=== PATIENT | male | born 1945 | race Caucasian/White ===

== ENCOUNTER 2022-07-24 12:41 | Inpatient (IN) | payer MEDICARE ==
[~2022-07-24] VITALS: Ht 182.9 cm; Wt 110.3 kg
[2022-07-24] MEDS ORDERED: methylPREDNISolone 125 MG (Solu-MEDROL) VIAL IVP ONE (13:00)
[2022-07-24] MEDS ORDERED: RT-ALBUTEROL/IPRATROPIUM 3 ML (DUONEB) VIAL INH ONE (13:00)
[2022-07-24] MEDS ORDERED: RT-ALBUTEROL/IPRATROPIUM 3 ML (DUONEB) VIAL ONE (13:03)
[2022-07-24 13:04] VITALS: BP 142/95
[2022-07-24 13:25] LABS: ABG BASE EXCESS 1.5 MMOL/L (-2.5-2.5); ABG OXYGEN SATURATION 100 % (94-100); ABG PCO2 43 MMHG (35-45); ABG PO2 153 MMHG (79-93); ABG TCO2 27.2 MMOL/L (21.0-31.0)
[2022-07-24 13:30] LABS: ALLENS TEST YES-POS; INSPIRED O2 60%; PATIENT TEMP 37; VENTILATOR YES
[2022-07-24 13:38] LABS: BASOPHILS # (AUTO) 0.1 10^3/uL (0.0-0.1); BASOPHILS % (AUTO) 1 % (0-10); EOSINOPHILS # (AUTO) 0.6 10^3/uL (0.0-0.3); EOSINOPHILS % (AUTO) 5 % (0-10); HEMATOCRIT 51 % (40-54); LYMPHOCYTES % (AUTO) 10 % (12-44); MEAN CORPUSCULAR HEMOGLOBIN 31 pg (25-34); MEAN CORPUSCULAR HGB CONC 34 g/dL (32-36); MEAN CORPUSCULAR VOLUME 92 fL (80-99); MEAN PLATELET VOLUME 10.8 fL (9.0-12.2); MONOCYTES % (AUTO) 9 % (0-12); NEUTROPHILS % (AUTO) 75 % (42-75); PLATELET COUNT 193 10^3/uL (130-400); WHITE BLOOD COUNT 10.7 10^3/uL (4.3-11.0)
[2022-07-24 13:48] LABS: ALBUMIN 3.3 GM/DL (3.2-4.5); POTASSIUM 4.7 MMOL/L (3.6-5.0)
[2022-07-24 13:49] LABS: CALCIUM 9.3 MG/DL (8.5-10.1)
[2022-07-24 13:50] LABS: TOTAL PROTEIN 7.8 GM/DL (6.4-8.2)
[2022-07-24 13:52] LABS: BILIRUBIN,TOTAL 0.7 MG/DL (0.1-1.0)
[2022-07-24 13:54] LABS: CREATININE SERUM 0.78 MG/DL (0.60-1.30)
[2022-07-24 13:56] LABS: MAGNESIUM 1.9 MG/DL (1.6-2.4)
--- NOTE | 2022-07-24 14:05 | Diagnostic Imaging Report ---
HISTORY: Shortness of air COMPARISON: None TECHNIQUE: Frontal view of the chest. FINDINGS: There is elevation of the right hemidiaphragm with airspace opacity in the right lung base. There may be a small right pleural effusion. No pneumothorax is present. The cardiac silhouette is normal in size. There is aortic atherosclerosis. IMPRESSION: 1. Right basilar airspace opacity, may represent atelectasis or infiltrate. 2. Elevation the right hemidiaphragm versus small pleural effusion. Dictated by: Dictated on workstation # [id number]
[2022-07-24] MEDS ORDERED: HOLD METFORMIN - RECEIVED CONTRAST 20 ML VIAL IV SCH (15:00)
[2022-07-24] MEDS ORDERED: IOHEXOL 350 MG/ML 100 ML (OMNIPAQUE 350) VIAL IV ONE (15:00)
[2022-07-24] MEDS ORDERED: NS 100 ML (IVPB) BAG IV ONE (15:00)
--- NOTE | 2022-07-24 15:53 | Diagnostic Imaging Report ---
EXAMINATION: CT angiography of the chest. TECHNIQUE: Contrast enhanced thin section helical images were obtained through the chest with intravenous contrast timed for the optimal opacification of the arterial structures per CTA protocol. Post-processing, reconstructions and interpretation of angiographic images of the vessels was performed. 3D MIP reconstructions were performed and reviewed. All CT scans use one or more of the following dose optimizing techniques: automated exposure control, MA and/or KvP adjustment based on patient size and exam type or iterative reconstruction. HISTORY: Shortness of breath. COMPARISON: None available. FINDINGS: Vascular: No filling defect within the pulmonary arteries. Thoracic aorta is normal in caliber. Calcification of the aorta and coronary vessels. Thyroid: The thyroid is normal. Mediastinum: Heart size is normal without significant pericardial effusion. No suspicious lymphadenopathy. Lungs and airways: There is a large right pleural effusion with adjacent atelectasis. No pneumothorax. Mild atelectasis within the right lung base. The airways are normal. Upper abdomen: The subphrenic structures are normal. Musculoskeletal: Degenerative changes of the spine without suspicious osseous lesion or compression fracture. IMPRESSION: 1. Large right pleural effusion with adjacent atelectasis. 2. No finding of pulmonary embolus. Dictated by: Dictated on workstation # [id number]
--- NOTE | 2022-07-24 16:40 | ED General ---
General Chief Complaint: Respiratory Problems Stated Complaint: SOA Nursing Triage Note: PT TO RM 7 PT CO OF SOA, PT IN RESP DISTRESS O2 SAT RM AIR 64%, RR 33. PT PLACE ON O2 @ 10 PER OXY MASK. PT STATES HAS BEEN SICK SINCE TUESDAY. PT IS FROM [facility]. HAS HX COPD Source of Information: Patient Exam Limitations: No Limitations History of Present Illness Date Seen by Provider: Jul 24, 2022 Time Seen by Provider: 12:50 Initial Comments Mr. Greco is a 77-year-old gentleman who presents to the emergency room in respiratory distress. On initial assessment he is moving air poorly, employing accessory muscle use, and has an oxygen saturation of 64%. He was immediately placed on a high flow mask. He is visiting the area for the holiday and normally lives in the [facility]. He uses the [employer]. He describes history of COPD, obstructive sleep apnea, hypertension, and hypothyroidism. He does not require oxygen use at home. He has used DuoNeb in both the inhaled and nebulized form today. He has not felt well for about the past 4 days. He denies cough or fever. He denies chest pain. Allergies and Home Medications Allergies Coded Allergies: No Known Drug Allergies (Unverified , 07/24/22) Patient Home Medication List Home Medication List Reviewed: Yes Review of Systems Review of Systems Constitutional: no symptoms reported EENTM: no symptoms reported Respiratory: see HPI Cardiovascular: no symptoms reported Gastrointestinal: no symptoms reported Genitourinary: no symptoms reported Musculoskeletal: no symptoms reported Skin: no symptoms reported Psychiatric/Neurological: No Symptoms Reported Hematologic/Lymphatic: No Symptoms Reported Immunological/Allergic: no symptoms reported Past Nvxxqpc-[id number]-Jswvkp Hx Patient Social History Tobacco Use?: No Smoking Status: Former Smoker Use of E-Cig and/or Vaping dev: No Substance use?: No Alcohol Use?: No Past Medical History Surgeries: Yes Gallbladder Respiratory: Yes Sleep Apnea, COPD Currently Using CPAP: Yes Cardiac: Yes Hypertension Neurological: No Genitourinary: No Gastrointestinal: No Musculoskeletal: No Endocrine: Yes Hypothyroidsim HEENT: No Psychosocial: No Physical Exam Vital Signs Vital Signs - First Documented 07/24/22 12:50 Temp 36.2 Pulse 86 Resp 33 B/P (MAP) 169/101 (123) Pulse Ox 91 O2 Delivery Nasal Cannula O2 Flow Rate 5.00 Capillary Refill : Less Than 3 Seconds Height, Weight, BMI Height: '" Weight: lbs. oz. kg; 35.00 BMI Method: General Appearance: WD/WN, Moderate Distress HEENT: PERRL/EOMI, Normal ENT Inspection Neck: Normal Inspection; No JVD Respiratory: Accessory Muscle Use, Decreased Breath Sounds, Respiratory Distress, Wheezing Cardiovascular: Regular Rate, Rhythm, No Edema, No Murmur Gastrointestinal: Non Tender, Soft Extremity: Normal Inspection, Non Tender, No Pedal Edema Neurologic/Psychiatric: Alert, Oriented x3, No Motor/Sensory Deficits, Normal Mood/Affect, Other (Cognition initially rather dulled but improved rapidly with oxygenation) Skin: Warm/Dry, Pallor Progress/Results/Core Measures Suspected Sepsis SIRS Temperature: Pulse: 74 Respiratory Rate: 30 Laboratory Tests 07/24/22 13:30: White Blood Count 10.7 Blood Pressure 142 /95 Mean: 123 Laboratory Tests 07/24/22 13:30: Creatinine 0.78, Platelet Count 193, Total Bilirubin 0.7 Results/Orders Lab Results Laboratory Tests Test 07/24/22 12:51 07/24/22 13:20 07/24/22 13:30 07/24/22 16:41 Range/Units Influenza Type A (RT-PCR) Not Detected Not Detecte Influenza Type B (RT-PCR) Not Detected Not Detecte SARS-CoV-2 RNA (RT-PCR) Not Detected Not Detecte Blood Gas Puncture Site RT RAD Blood Gas Patient Temperature 37 Arterial Blood pH 7.40 7.37-7.43 Arterial Blood Partial Pressure CO2 43 35-45 MMHG Arterial Blood Partial Pressure O2 153 H 79-93 MMHG Arterial Blood HCO3 26 23-27 MMOL/L Arterial Blood Total CO2 27.2 21.0-31.0 MMOL/L Arterial Blood Oxygen Saturation 100 94-100 % Arterial Blood Base Excess 1.5 -2.5-2.5 MMOL/L Brian Test YES-POS Blood Gas Ventilator Setting YES Blood Gas Inspired Oxygen 60% White Blood Count 10.7 4.3-11.0 10^3/uL Red Blood Count 5.53 H 4.30-5.52 10^6/uL Hemoglobin 17.0 13.3-17.7 g/dL Hematocrit 51 40-54 % Mean Corpuscular Volume 92 80-99 fL Mean Corpuscular Hemoglobin 31 25-34 pg Mean Corpuscular Hemoglobin Concent 34 32-36 g/dL Red Cell Distribution Width 13.2 10.0-14.5 % Platelet Count 193 130-400 10^3/uL Mean Platelet Volume 10.8 9.0-12.2 fL Immature Granulocyte % (Auto) 1 % Neutrophils (%) (Auto) 75 42-75 % Lymphocytes (%) (Auto) 10 L 12-44 % Monocytes (%) (Auto) 9 0-12 % Eosinophils (%) (Auto) 5 0-10 % Basophils (%) (Auto) 1 0-10 % Neutrophils # (Auto) 8.0 H 1.8-7.8 10^3/uL Lymphocytes # (Auto) 1.0 1.0-4.0 10^3/uL Monocytes # (Auto) 1.0 0.0-1.0 10^3/uL Eosinophils # (Auto) 0.6 H 0.0-0.3 10^3/uL Basophils # (Auto) 0.1 0.0-0.1 10^3/uL Immature Granulocyte # (Auto) 0.1 0.0-0.1 10^3/uL D-Dimer 3.19 H 0.00-0.49 UG/ML Sodium Level 131 L 135-145 MMOL/L Potassium Level 4.7 3.6-5.0 MMOL/L Chloride Level 99 98-107 MMOL/L Carbon Dioxide Level 19 L 21-32 MMOL/L Anion Gap 13 5-14 MMOL/L Blood Urea Nitrogen 13 7-18 MG/DL Creatinine 0.78 0.60-1.30 MG/DL Estimat Glomerular Filtration Rate 93 BUN/Creatinine Ratio 17 Glucose Level 84 70-105 MG/DL Calcium Level 9.3 8.5-10.1 MG/DL Corrected Calcium 9.9 8.5-10.1 MG/DL Magnesium Level 1.9 1.6-2.4 MG/DL Total Bilirubin 0.7 0.1-1.0 MG/DL Aspartate Amino Transf (AST/SGOT) 41 H 5-34 U/L Alanine Aminotransferase (ALT/SGPT) 27 0-55 U/L Alkaline Phosphatase 82 40-136 U/L Troponin I 0.072 H 0.080 H <0.028 NG/ML C-Reactive Protein High Sensitivity 5.90 H 0.00-0.50 MG/DL B-Type Natriuretic Peptide 87.7 <100.0 PG/ML Total Protein 7.8 6.4-8.2 GM/DL Albumin 3.3 3.2-4.5 GM/DL Procalcitonin 0.04 <0.10 NG/ML My Orders Orders - BABS GILMORE MD Covid 19 Inhouse Test (07/24/22 12:46) Influenza A And B By Pcr (07/24/22 12:46) Bnp Mcintosh (07/24/22 13:00) Cbc With Automated Diff (07/24/22 13:00) Comprehensive Metabolic Panel (07/24/22 13:00) Hs C Reactive Protein (07/24/22 13:00) Magnesium (07/24/22 13:00) Procalcitonin (Pct) (07/24/22 13:00) Ed Iv/Invasive Line Start (07/24/22 13:00) Ekg Tracing (07/24/22 13:00) O2 (07/24/22 13:00) Monitor-Rhythm Ecg Trace Only (07/24/22 13:00) Fibrin Degradation Products (07/24/22 13:00) Troponin I Mcintosh (07/24/22 13:00) Methylprednisolone Sod Succ (Solu-Medrol (07/24/22 13:00) Albuterol/Ipra Inhalation Soln (Duoneb I (07/24/22 13:00) Svn Small Volume Nebulizer (07/24/22 13:00) Albuterol/Ipra Inhalation Soln (Duoneb I (07/24/22 13:03) Arterial Blood Gas (07/24/22 13:15) Chest 1 View, Ap/Pa Only (07/24/22 13:42) Ct Angio Chest W (07/24/22 14:54) Iohexol Injection (Omnipaque 350 Mg/Ml 1 (07/24/22 15:00) Received Contrast (Hold Metformin- Contr (07/24/22 15:00) Ns (Ivpb) (Sodium Chloride 0.9% Ivpb Bag (07/24/22 15:00) Troponin I Mcintosh (07/24/22 15:30) Aspirin Chewable Tablet (Baby Aspirin Ch (07/24/22 17:00) Furosemide Injection (Lasix Injection) (07/24/22 17:00) Potassium Chloride (Tablet) (Klor Con Ta (07/24/22 17:00) Medications Given in ED Current Medications Medications Dose Ordered Sig/Annetta Route Start Time Stop Time Status Last Admin Dose Admin Albuterol/ Ipratropium 3 ml ONCE ONCE INH 07/24/22 13:00 07/24/22 13:06 DC 07/24/22 13:12 3 ML Iohexol 100 ml ONCE ONCE IV 07/24/22 15:00 07/24/22 15:01 DC 07/24/22 15:35 84 ML Methylprednisolone Sodium Succinate 125 mg ONCE ONCE IVP 07/24/22 13:00 07/24/22 13:06 DC 07/24/22 13:38 125 MG Sodium Chloride 100 ml ONCE ONCE IV 07/24/22 15:00 07/24/22 15:01 DC 07/24/22 15:35 100 ML Vital Signs/I&O 07/24/22 07/24/22 07/24/22 07/24/22 12:50 12:50 12:50 13:04 Temp 36.2 Pulse 86 74 Resp 33 30 B/P (MAP) 169/101 (123) Pulse Ox 91 95 99 O2 Delivery Nasal Cannula Nasal Cannula OxyMask O2 Flow Rate 5.00 3.00 60.00 Capillary Refill : Less Than 3 Seconds Blood Pressure Mean: 123 Progress Note : Progress Note Patient was immediately placed on high flow oxygen and shortly thereafter on BiPAP. His oxygenation resuscitated quickly. He was found to have a large right pleural effusion which is not previously known to him. No specific cause was identified for this unilateral pleural effusion. He likely has some degree of COPD exacerbation, but the pleural effusion is likely the primary cause of h is respiratory failure. He was treated with DuoNeb and Solu-Medrol. He remained on the BiPAP in stable condition throughout the rest of his ER stay. D-dimer was elevated which prompted CT angiogram. No pulmonary embolus was identified. Dr. Garcia was consulted to perform thoracentesis. Fluid should be tested as he has not had thoracentesis in the past and there is no known cause for his pleural effusion. No infectious etiology was identified. Patient desires to have full CODE STATUS. A low-dose of Lasix was administered with accompanying potassium to prevent further accumulation of pleural effusion. Dr. Garcia plans to perform thoracentesis in the morning unless patient decompensates necessitating emergent thoracentesis. Patient had a slight eleva tion in troponin but repeat was stable. ECG Initial ECG Impression Date: Jul 24, 2022 Initial ECG Impression Time: 13:15 Initial ECG Rate: 74 Initial ECG Rhythm: Normal Sinus Comment Sinus rhythm with no ST elevation or depression. No abnormal intervals or axis deviation. PVC noted. Diagnostic Imaging Diagonstic Imaging: Xray Plain Films/CT/US/NM/MRI: chest Comments NAME: HUMPHREY GRECO [facility] REC#: [id number] PT STATUS: REG ER : 1945 PHYSICIAN: BABS GILMORE MD ADMIT DATE: 07/24/22/ER Signed Date of Exam:07/24/22 CHEST 1 VIEW, AP/PA ONLY HISTORY: Shortness of air COMPARISON: None TECHNIQUE: Frontal view of the chest. FINDINGS: There is elevation of the right hemidiaphragm with airspace opacity in the right lung base. There may be a small right pleural effusion. No pneumothorax is present. The cardiac silhouette is normal in size. There is aortic atherosclerosis. IMPRESSION: 1. Right basilar airspace opacity, may represent atelectasis or infiltrate. 2. Elevation the right hemidiaphragm versus small pleural effusion. Dictated by: Dictated on workstation # [id number] Dict: 07/24/22 1402 Trans: 07/24/[address] [facility] [id number] Interpreted by: SHANNAN CAMEJO MD Electronically signed by: SHANNAN CAMEJO MD 07/24/22 1409 Diagonstic Imaging: CT Plain Films/CT/US/NM/MRI: chest Comments CT angiogram of the chest viewed by me and report reviewed. See report below: NAME: HUMPHREY GRECO [employer] REC#: [id number] PT STATUS: REG ER : 1945 PHYSICIAN: BABS GILMORE MD ADMIT DATE: 07/24/22/ER Signed Date of Exam:07/24/22 CT ANGIO CHEST W EXAMINATION: CT angiography of the chest. TECHNIQUE: Contrast enhanced thin section helical images were obtained through the chest with intravenous contrast timed for the optimal opacification of the arterial structures per CTA protocol. Post-processing, reconstructions and interpretation of angiographic images of the vessels was performed. 3D MIP reconstructions were performed and reviewed. All CT scans use one or more of the following dose optimizing techniques: automated exposure control, MA and/or KvP adjustment based on patient size and exam type or iterative reconstruction. HISTORY: Shortness of breath. COMPARISON: None available. FINDINGS: Vascular: No filling defect within the pulmonary arteries. Thoracic aorta is normal in caliber. Calcification of the aorta and coronary vessels. Thyroid: The thyroid is normal. Mediastinum: Heart size is normal without significant pericardial effusion. No suspicious lymphadenopathy. Lungs and airways: There is a large right pleural effusion with adjacent atelectasis. No pneumothorax. Mild atelectasis within the right lung base. The airways are normal. Upper abdomen: The subphrenic structures are normal. Musculoskeletal: Degenerative changes of the spine without suspicious osseous lesion or compression fracture. IMPRESSION: 1. Large right pleural effusion with adjacent atelectasis. 2. No finding of pulmonary embolus. Dictated by: Dictated on workstation # [id number] Dict: 07/24/22 1547 Trans: 07/24/[address] [facility] [id number] Interpreted by: HUMPHREY ADLER DO Electronically signed by: HUMPHREY ADLER DO 07/24/22 1556 Departure Communication (Admissions) Time/Spoke to Admitting Phy: 16:42 Dr. Thelma Hayward at 1650 Dr. Garcia at 1630 Impression Primary Impression: Acute respiratory failure with hypoxia Additional Impressions: Pleural effusion, right COPD exacerbation Disposition: ADMITTED INPATIENT Condition: Stable Admissions Decision to Admit Reason: Admit from ER (General) Decision to Admit/Date: Jul 24, 2022 Time/Decision to Admit Time: 16:42 Departure-Patient Inst. Referrals: NO,LOCAL PHYSICIAN (PCP/Family) Primary Care Physician BABS GILMORE MD Jul 24, 2022 16:40
[2022-07-24] MEDS ORDERED: FUROSEMIDE 40 MG/4 ML INJ (LASIX) IVP ONE (17:00)
[2022-07-24] MEDS ORDERED: KCL 10 MEQ TAB (MICRO K) PO ONE (17:00)
[2022-07-24] MEDS ORDERED: ASPIRIN 81 MG CHEW (CHILDREN'S ASA) PO ONE (17:00)
--- NOTE | 2022-07-24 17:28 | Tele-ICU Consult ---
Progress Note 77 y/o male with hx of COPD presents with SOB and hypoxemia ( O2 sat 64%) Started on steroids, and nebs CXR: here is elevation of the right hemidiaphragm with airspace opacity in the right lung base. There may be a small right pleural effusion. No pneumothorax is present. The cardiac silhouette is normal in size. There is aortic atherosclerosis. IMPRESSION: 1. Right basilar airspace opacity, may represent atelectasis or infiltrate. 2. Elevation the right hemidiaphragm versus small pleural effusion. CTA chest: no PE IMP: acute exaccerbation of COPD Focused Exam Height, Weight, BMI Height: '" Weight: lbs. oz. kg; 35.00 BMI Method: Labs Laboratory Tests 07/24/22 13:30 Results Results/Procedures Lab Laboratory Tests 07/24/22 13:30 Results Labs Labs Laboratory Tests 07/24/22 12:51: Influenza Type A (RT-PCR) Not Detected, Influenza Type B (RT-PCR) Not Detected, SARS-CoV-2 RNA (RT-PCR) Not Detected 07/24/22 13:20: Blood Gas Puncture Site RT RAD, Blood Gas Patient Temperature 37, Arterial Blood pH 7.40, Arterial Blood Partial Pressure CO2 43, Arterial Blood Partial Pressure O2 153H, Arterial Blood HCO3 26, Arterial Blood Total CO2 27.2, Arterial Blood Oxygen Saturation 100, Arterial Blood Base Excess 1.5, Brian Test YES-POS, Blood Gas Ventilator Setting YES, Blood Gas Inspired Oxygen 60% 07/24/22 13:30: White Blood Count 10.7, Red Blood Count 5.53H, Hemoglobin 17.0, Hematocrit 51, M justin Corpuscular Volume 92, Mean Corpuscular Hemoglobin 31, Mean Corpuscular Hemoglobin Concent 34, Red Cell Distribution Width 13.2, Platelet Count 193, Mean Platelet Volume 10.8, Immature Granulocyte % (Auto) 1, Neutrophils (%) (Auto) 75, Lymphocytes (%) (Auto) 10L, Monocytes (%) (Auto) 9, Eosinophils (%) (Auto) 5, Basophils (%) (Auto) 1, Neutrophils # (Auto) 8.0H, Lymphocytes # (Auto) 1.0, Monocytes # (Auto) 1.0, Eosinophils # (Auto) 0.6H, Basophils # (Auto) 0.1, Immature Granulocyte # (Auto) 0.1, D-Dimer 3.19H, Sodium Level 131L, Potassium Level 4.7, Chloride Level 99, Carbon Dioxide Level 19L, Anion Gap 13, Blood Urea Nitrogen 13, Creatinine 0.78, Estimat Glomerular Filtration Rate 93, BUN/Creatinine Ratio 17, Glucose Level 84, Calcium Level 9.3, Corrected Calcium 9.9, Magnesium Level 1.9, Total Bilirubin 0.7, Aspartate Amino Transf (AST/SGOT) 41H, Alanine Aminotransferase (ALT/SGPT) 27, Alkaline Phosphatase 82, Troponin I 0.072H, C-Reactive Protein High Sensitivity 5.90H, B-Type Natriuretic Peptide 87.7, Total Protein 7.8, Albumin 3.3, Procalcitonin 0.04 07/24/22 16:41: Troponin I 0.080H JEOVANY GOMES MD Jul 24, 2022 17:28
[2022-07-24] MEDS ORDERED: polyethylene glycoL POWDER 17 GM (MIRALAX) PACK PO PRN (18:15)
[2022-07-24] MEDS ORDERED: ACETAMINOPHEN 325 MG TABLET PO PRN (18:15)
[2022-07-24] MEDS ORDERED: MILK OF MAGNESIA 400 MG/5 ML 30 ML UDC PO PRN (18:15)
[2022-07-24] MEDS ORDERED: MELATONIN 3 MG TABLET PO PRN (18:15)
[2022-07-24] MEDS ORDERED: ONDANSETRON 4 MG (ZOFRAN) ORAL DISSOLVE TAB PO PRN (18:15)
[2022-07-24] MEDS ORDERED: CALCIUM CARBONATE 500 MG (TUMS) TAB.CHEW PO PRN (18:15)
[2022-07-24] MEDS ORDERED: LACTULOSE SYRUP 10GM/15ML (ENULOSE) 30ML UDC PO PRN (18:15)
[2022-07-24] MEDS ORDERED: BISACODYL 10 MG SUPP (DULCOLAX) PR PRN (18:15)
[2022-07-24] MEDS ORDERED: NS IV 500 ML 500 ML IV PRN (18:15)
[2022-07-24] MEDS ORDERED: ANTACID SUSP 30 ML UDC (MYLANTA) PO PRN (18:15)
[2022-07-24] MEDS ORDERED: ONDANSETRON 4 MG/2 ML (SDV) Z0FRAN IV PRN (18:15)
[2022-07-24 18:53] LABS: BILIRUBIN,URINE NEGATIVE (NEGATIVE); CLARITY,URINE CLEAR; COLOR,URINE YELLOW; GLUCOSE, URINE (UA) NEGATIVE (NEGATIVE); KETONES,URINE 1+ (NEGATIVE); LEUKOCYTE ESTERASE ,URINE NEGATIVE (NEGATIVE); NITRITE,URINE NEGATIVE (NEGATIVE); PROTEIN,URINE NEGATIVE (NEGATIVE)
[2022-07-24 19:08] LABS: BACTERIA,URINE NEGATIVE /HPF
[2022-07-24 19:39] VITALS: BP 109/77
[2022-07-24] MEDS ORDERED: RT-ALBUTEROL SULF 2.5 MG/3 ML PRE-MIX VIAL INH PRN (20:00)
[2022-07-24] MEDS: ENOXAPARIN 40 MG/0.4 ML (LOVENOX) SYR SC SCH (20:35)
[2022-07-24 20:56] VITALS: BP 112/77
[2022-07-24] MEDS: SENNOSIDES 8.6 MG (SENOKOT) TAB PO SCH (20:57)
[2022-07-24] MEDS: DOCUSATE SODIUM 100 MG (COLACE) CAP PO SCH (20:57)
[2022-07-24 21:18] LABS: ABG BASE EXCESS 1.9 MMOL/L (-2.5-2.5); ABG OXYGEN SATURATION 98 % (94-100); ABG PCO2 44 MMHG (35-45); ABG PH 7.39 (7.37-7.43); ABG PO2 82 MMHG (79-93); ABG TCO2 27.8 MMOL/L (21.0-31.0)
[2022-07-24 21:20] LABS: ALLENS TEST YES-POS; INSPIRED O2 40%; PATIENT TEMP 36.5; VENTILATOR NO
[2022-07-24] MEDS: RT-ALBUTEROL SULF 2.5 MG/3 ML PRE-MIX VIAL INH SCH (22:32)
[2022-07-24 22:33] VITALS: BP 96/74
[2022-07-25 02:56] VITALS: BP 155/96
[2022-07-25] MEDS: RT-ALBUTEROL SULF 2.5 MG/3 ML PRE-MIX VIAL INH SCH ×6 (02:56→22:25)
[2022-07-25 04:48] LABS: BASOPHILS % (AUTO) 0 % (0-10); EOSINOPHILS % (AUTO) 0 % (0-10); HEMATOCRIT 52 % (40-54); HEMOGLOBIN 17.4 g/dL (13.3-17.7); LYMPHOCYTES # (AUTO) 0.5 10^3/uL (1.0-4.0); LYMPHOCYTES % (AUTO) 3 % (12-44); MEAN CORPUSCULAR HEMOGLOBIN 30 pg (25-34); MEAN CORPUSCULAR HGB CONC 33 g/dL (32-36); MEAN CORPUSCULAR VOLUME 91 fL (80-99); MEAN PLATELET VOLUME 11.4 fL (9.0-12.2); MONOCYTES # (AUTO) 0.5 10^3/uL (0.0-1.0); MONOCYTES % (AUTO) 3 % (0-12); NEUTROPHILS # (AUTO) 16.1 10^3/uL (1.8-7.8); NEUTROPHILS % (AUTO) 94 % (42-75); PLATELET COUNT 206 10^3/uL (130-400); WHITE BLOOD COUNT 17.2 10^3/uL (4.3-11.0)
[2022-07-25 05:17] LABS: CALCIUM 9.4 MG/DL (8.5-10.1); CREATININE SERUM 0.96 MG/DL (0.60-1.30); MAGNESIUM 2.1 MG/DL (1.6-2.4); POTASSIUM 4.4 MMOL/L (3.6-5.0)
[2022-07-25 05:25] LABS: LYMPHOCYTES % (MANUAL) 4 %; MONOCYTES % (MANUAL) 5 %; NEUTROPHILS % (MANUAL) 91 %; RBC MORPH NORMAL
[2022-07-25] MEDS: POTASSIUM CL 10MEQ/50ML IVPB 50 ML IV SCH (06:01)
[2022-07-25] MEDS: KCL 20 MEQ TAB (K-DUR) PO SCH (06:01)
[2022-07-25] MEDS: MAGNESIUM 1 GM/100 ML IVPB 100 ML IV SCH (06:01)
[2022-07-25 06:48] VITALS: BP 102/69
--- NOTE | 2022-07-25 10:14 | Tele-ICU Progress Note ---
Subjective Date Seen by a Provider: Jul 25, 2022 Time Seen by a Provider: 10:13 Subjective/Events-last exam (Tele-ICU Physician , Progress Note ) Service provided via interactive audio and video telecommunications E-CARE system to a patient admitted to ICU bed in [facility]. Available chart/ vitals / labs / Images reviewed Video assessment done using teleICU camera, rest of exam as per RN Discussed with RN Events overnight : Afebrile hemodynamically stable Respiratory - I/O = 40% Drips: Pressors- no Patient is seen today due to persistent and new A/P Acute resp failure ) no pe , large effusion on right with atelectasis vs infiltrate - small - on BIPAP 14/6 40 % , rr 32 TV 500 - AAO - attempt to wean -possible thora today , SX consulted Right basilar airspace opacity/ Large right pleural effusion - etiology is not clear , agree with thora , await w/up COPD ( no sign emphesma on CT - ? exacrbation - as per bedside - received one dose of steroids in ER GABRIEL - reported - ? on CPAP at home Leucocytosis today - ? steroids related bs infection - off abx now - neg flyu and covid Lines : , (Central Line Necessity Reviewed) Sales: OG: Nutrition: Analgesia: Anxiety/ delirium VTE Prophylaxis: samira 40 Stress Ulcer Prophylaxis: na Plans in collaboration with bedside consultants and IM MDs. Discussed with RN to reach out if any questions or concerns A total of 32 minutes of critical care time was devoted to this patient today, required to treat and/or prevent further deterioration of critical care condition ( as above ) . I am remotely monitoring this patient from another state. I am unable to do the bedside exam, and history/physical and pertinent information is taken from other notes in the computer and bedside staff. + Sepsis Event Evaluation Height, Weight, BMI Height: '" Weight: lbs. oz. kg; 33.65 BMI Method: Exam Exam Patient acknowledged, consented, and participated in this virtual visit which was conducted using real time audio/video Vital Signs Date Time Temp Pulse Resp B/P (MAP) Pulse Ox O2 Delivery O2 Flow Rate FiO2 07/25/22 09:00 78 16 96/76 (83) 94 High Flow N/C 6.00 07/25/22 08:00 84 23 110/75 (87) 94 High Flow N/C 6.00 07/25/22 07:23 36.3 07/25/22 07:00 83 19 108/69 (82) 95 High Flow N/C 6.00 07/25/22 07:00 83 07/25/22 06:48 79 16 94 40.00 07/25/22 06:00 80 20 112/66 (81) 92 High Flow N/C 6.00 07/25/22 05:05 36.8 07/25/22 05:00 85 12 106/75 (85) 93 High Flow N/C 6.00 07/25/22 04:05 36.8 07/25/22 04:00 79 12 106/81 (89) 92 High Flow N/C 6.00 07/25/22 04:00 94 High Flow N/C 6.00 07/25/22 03:11 High Flow N/C 6.00 07/25/22 03:00 75 15 133/91 (105) 94 NIV Bilevel 40.00 07/25/22 02:56 75 16 95 40.00 07/25/22 02:00 80 31 155/81 (105) 96 NIV Bilevel 40.00 07/25/22 01:00 70 31 151/79 (103) 98 NIV Bilevel 40.00 07/25/22 01:00 70 07/25/22 00:00 79 29 122/79 (93) 94 NIV Bilevel 40.00 07/24/22 23:59 94 NIV Bilevel 40 07/24/22 23:00 89 25 134/92 (106) 97 NIV Bilevel 40.00 07/24/22 22:33 68 16 95 40.00 07/24/22 22:00 71 18 103/75 (84) 94 NIV Bilevel 40.00 07/24/22 21:00 82 17 105/69 (81) 94 NIV Bilevel 40.00 07/24/22 20:56 81 23 95 40.00 07/24/22 20:00 79 19 111/77 (88) 95 NIV Bilevel 40.00 07/24/22 20:00 94 NIV Bilevel 40 07/24/22 19:39 37.0 74 90 40 07/24/22 19:00 80 07/24/22 19:00 72 22 111/73 (86) 95 NIV Bilevel 40.00 07/24/22 18:15 90 NIV Bilevel 40.00 07/24/22 18:00 74 07/24/22 18:00 72 109/77 (88) 90 NIV Bilevel 40.00 07/24/22 17:39 37.0 75 30 130/97 (108) 93 NIV Bilevel 40.00 07/24/22 17:27 36.5 84 18 134/78 98 NIV Bilevel 07/24/22 17:02 75 30 96 40.00 07/24/22 13:04 74 30 99 60.00 07/24/22 12:50 36.2 86 33 169/101 (123) 95 OxyMask 07/24/22 12:50 91 Nasal Cannula 3.00 07/24/22 12:50 Nasal Cannula 5.00 I & O 07/25/22 07:00 Intake Total 250 ml Output Total 1405 ml Balance -1155 ml Height & Weight Height: '" Weight: lbs. oz. kg; 33.65 BMI Method: General Appearance: WD/WN, Moderate Distress HEENT: PERRL/EOMI, Normal ENT Inspection Neck: Normal Inspection; No JVD Respiratory: Accessory Muscle Use, Decreased Breath Sounds, Respiratory Distress, Wheezing Cardiovascular: Regular Rate, Rhythm, No Edema, No Murmur Capillary Refill: Less Than 3 Seconds Extremity: Normal Inspection, Non Tender, No Pedal Edema Neurologic/Psychiatric: Alert, Oriented x3, No Motor/Sensory Deficits, Normal Mood/Affect, Other (Cognition initially rather dulled but improved rapidly with oxygenation) Skin: Warm/Dry, Pallor Results Lab Laboratory Tests 07/24/22 13:30 07/25/22 04:03 Assessment/Plan Assessment/Plan 1 ELODIA GALARZA MD Jul 25, 2022 10:14
--- NOTE | 2022-07-25 10:45 | Consultation - Surgery ---
DARCI NOEL 07/25/22 1045: History of Present Illness History of Present Illness Patient Consulted On(neha/time) 07/25/22 10:40 Date Seen by Provider: Jul 25, 2022 Time Seen by Provider: 09:20 History of Present Illness Patient being seen in consult from ER for right Pleural Effusion and possible Thoracentesis. 77 year old male from [place] with a Past MedHx of COPD, GABRIEL, Hypothyroidism, Hypertension presented to [facility] ER with a chief complaint of worsening shortness of breath. Patient was visiting spouse parents in the area. States has progressively feeling worse for a while, but on Tuesday of this week things started to rapidly become worse. Patient attempted to use his albuterol nebulizer multiple times in attempt to help with SOB to no avail. Patient also endorses a productive cough and alternating diarrhea and constipation. Patient denies feeling any systemic symptoms (fever, chills, body aches, N/V). Patient states nothing really makes his SOB worse, it has just progressively been worsening. Patient has never been hospitalized for a COPD exacerbation or AHRF before. Allergies and Home Medications Allergies Coded Allergies: No Known Drug Allergies (Unverified , 07/24/22) Patient Home Medication List Home Medication List Reviewed: Yes Past Ucdyhik-Kruumt-Rdwpdz Hx Patient Social History Smoking Status: Former Smoker (10 year pack history ) Alcohol Use?: No Substance type: Nicotine Have you traveled recently?: Yes Surgeries History of Surgeries: Yes Surgeries: Gallbladder Respiratory History of Respiratory Disorde: Yes Respiratory Disorders: Sleep Apnea, COPD Cardiovascular History of Cardiac Disorders: Yes Cardiac Disorders: Hypertension Neurological History of Neurological Disord: No Genitourinary History of Genitourinary Disor: No Gastrointestinal History of Gastrointestinal Di: No Musculoskeletal History of Musculoskeletal Dis: No Endocrine History of Endocrine Disorders: Yes Endocrine Disorders: Hypothyroidsim HEENT History of HEENT Disorders: No Psychosocial History of Psychiatric Problem: No Family Medical History Significant Family History: Cancer (bladder, prostate ), CVA Review of Systems-General Constitutional: No chills, No diaphoresis EENTM: hearing loss (presbycusis ); No blurred vision, No double vision Respiratory: cough, dyspnea on exertion, short of breath Cardiovascular: No chest pain, No palpitations Gastrointestinal: No abdominal pain; constipation, diarrhea; No nausea, No vomiting Genitourinary: No dysuria, No frequency Skin: No change in color, No change in hair/nails Psychiatric/Neurological: Denies Anxiety, Denies Depressed Physical Exam-General Problems Physical Exam Vital Signs Vital Signs - First Documented 07/24/22 07/24/22 12:50 19:39 Temp 36.2 Pulse 86 Resp 33 B/P (MAP) 169/101 (123) Pulse Ox 91 O2 Delivery Nasal Cannula O2 Flow Rate 5.00 FiO2 40 Capillary Refill : Less Than 3 Seconds General Appearance: WD/WN, mild distress (not tolerating BiPAP mask well ) HEENT: PERRL/EOMI Neck: non-tender, supple Respiratory: no respiratory distress (however, not tolerating BiPAP well 14/6|16|40%), no accessory muscle use, decreased breath sounds, crackles Cardiovascular: regular rate, rhythm (Auscultation very faint due to BiPAP interference ), no murmur Gastrointestinal: non tender, soft Rectal: deferred Extremities: non-tender, no pedal edema, no calf tenderness Neurologic/Psychiatric: alert, oriented x 3 Skin: normal color, warm/dry Data Review Labs Laboratory Tests 07/24/22 12:51: Influenza Type A (RT-PCR) Not Detected, Influenza Type B (RT-PCR) Not Detected, SARS-CoV-2 RNA (RT-PCR) Not Detected 07/24/22 13:20: Blood Gas Puncture Site RT RAD, Blood Gas Patient Temperature 37, Arterial Blood pH 7.40, Arterial Blood Partial Pressure CO2 43, Arterial Blood Partial Pressure O2 153H, Arterial Blood HCO3 26, Arterial Blood Total CO2 27.2, Arterial Blood Oxygen Saturation 100, Arterial Blood Base Excess 1.5, Brian Test YES-POS, Blood Gas Ventilator Setting YES, Blood Gas Inspired Oxygen 60% 07/24/22 13:30: White Blood Count 10.7, Red Blood Count 5.53H, Hemoglobin 17.0, Hematocrit 51, Mean Corpuscular Volume 92, Mean Corpuscular Hemoglobin 31, Mean Corpuscular Hemoglobin Concent 34, Red Cell Distribution Width 13.2, Platelet Count 193, Mean Platelet Volume 10.8, Immature Granulocyte % (Auto) 1, Neutrophils (%) (Auto) 75, Lymphocytes (%) (Auto) 10L, Monocytes (%) (Auto) 9, Eosinophils (%) (Auto) 5, Basophils (%) (Auto) 1, Neutrophils # (Auto) 8.0H, Lymphocytes # (Auto) 1.0, Monocytes # (Auto) 1.0, Eosinophils # (Auto) 0.6H, Basophils # (Auto) 0.1, Immature Granulocyte # (Auto) 0.1, D-Dimer 3.19H, Sodium Level 131L, Potassium Level 4.7, Chloride Level 99, Carbon Dioxide Level 19L, Anion Gap 13, Blood Urea Nitrogen 13, Creatinine 0.78, Estimat Glomerular Filtration Rate 93, BUN/Creatinine Ratio 17, Glucose Level 84, Calcium Level 9.3, Corrected Calcium 9.9, Magnesium Level 1.9, Total Bilirubin 0.7, Aspartate Amino Transf (AST/SGOT) 41H, Alanine Aminotransferase (ALT/SGPT) 27, Alkaline Phosphatase 82, Troponin I 0.072H, C-Reactive Protein High Sensitivity 5.90H, B-Type Natriuretic Peptide 87.7, Total Protein 7.8, Albumin 3.3, Procalcitonin 0.04 07/24/22 16:41: Troponin I 0.080H 07/24/22 18:40: Urine Color YELLOW, Urine Clarity CLEAR, Urine pH 6.0, Urine Specific Umpire 1.010L, Urine Protein NEGATIVE, Urine Glucose (UA) NEGATIVE, Urine Ketones 1+H, Urine Nitrite NEGATIVE, Urine Bilirubin NEGATIVE, Urine Urobilinogen 0.2, Urine Leukocyte Esterase NEGATIVE, Urine RBC (Auto) 1+H, Urine RBC 2-5H, Urine WBC NONE, Urine Crystals NONE, Urine Bacteria NEGATIVE, Urine Casts NONE, Urine Mucus NEGATIVE, Urine Culture Indicated NO 07/24/22 19:41: Troponin I 0.060H 07/24/22 21:06: Blood Gas Puncture Site R RAD, Blood Gas Patient Temperature 36.5, Arterial Blood pH 7.39, Arterial Blood Partial Pressure CO2 44, Arterial Blood Partial Pressure O2 82, Arterial Blood HCO3 26, Arterial Blood Total CO2 27.8, Arterial Blood Oxygen Saturation 98, Arterial Blood Base Excess 1.9, Brian Test YES-POS, Blood Gas Ventilator Setting NO, Blood Gas Inspired Oxygen 40% 07/25/22 04:03: Troponin I 0.056H, White Blood Count 17.2H, Red Blood Count 5.72H, Hemoglobin 17.4, Hematocrit 52, Mean Corpuscular Volume 91, Mean Corpuscular Hemoglobin 30, Mean Corpuscular Hemoglobin Concent 33, Red Cell Distribution Width 13.0, Platelet Count 206, Mean Platelet Volume 11.4, Immature Granulocyte % (Auto) 1, Neutrophils (%) (Auto) 94H, Lymphocytes (%) (Auto) 3L, Monocytes (%) (Auto) 3, Eosinophils (%) (Auto) 0, Basophils (%) (Auto) 0, Neutrophils # (Auto) 16.1H, Lymphocytes # (Auto) 0.5L, Monocytes # (Auto) 0.5, Eosinophils # (Auto) 0.0, Basophils # (Auto) 0.0, Immature Granulocyte # (Auto) 0.1, Neutrophils % (Manual) 91, Lymphocytes % (Manual) 4, Monocytes % (Manual) 5, Blood Morphology Comment NORMAL, Sodium Level 132L, Potassium Level 4.4, Chloride Level 96L, Carbon Dioxide Level 20L, Anion Gap 16H, Blood Urea Nitrogen 19H, Creatinine 0.96, Estimat Glomerular Filtration Rate 82, BUN/Creatinine Ratio 20, Glucose Level 120H, Calcium Level 9.4, Magnesium Level 2.1 Radiology NAME: HUMPHREY GRECO [facility] REC#: [id number] PT STATUS: REG ER : 1945 PHYSICIAN: BABS GILMORE MD ADMIT DATE: 07/24/22/ER Signed Date of Exam:07/24/22 CHEST 1 VIEW, AP/PA ONLY HISTORY: Shortness of air COMPARISON: None TECHNIQUE: Frontal view of the chest. FINDINGS: There is elevation of the right hemidiaphragm with airspace opacity in the right lung base. There may be a small right pleural effusion. No pneumothorax is present. The cardiac silhouette is normal in size. There is aortic atherosclerosis. IMPRESSION: 1. Right basilar airspace opacity, may represent atelectasis or infiltrate. 2. Elevation the right hemidiaphragm versus small pleural effusion. Dictated by: Dictated on workstation # [id number] Dict: 07/24/221401 Trans: 07/24/221408 [facility] [id number] Interpreted by: SHANNAN CAMEJO MD Electronically signed by: SHANNAN CAMEJO MD 07/24/22 1409 [facility] [address], [place] NAME: HUMPHREY GRECO [facility] REC#: [id number] PT STATUS: REG ER : 1945 PHYSICIAN: BABS GILMORE MD ADMIT DATE: 07/24/22/ER Signed Date of Exam:07/24/22 CT ANGIO CHEST W EXAMINATION: CT angiography of the chest. TECHNIQUE: Contrast enhanced thin section helical images were obtained through the chest with intravenous contrast timed for the optimal opacification of the arterial structures per CTA protocol. Post-processing, reconstructions and interpretation of angiographic images of the vessels was performed. 3D MIP reconstructions were performed and reviewed. All CT scans use one or more of the following dose optimizing techniques: automated exposure control, MA and/or KvP adjustment based on patient size and exam type or iterative reconstruction. HISTORY: Shortness of breath. COMPARISON: None available. FINDINGS: Vascular: No filling defect within the pulmonary arteries. Thoracic aorta is normal in caliber. Calcification of the aorta and coronary vessels. Thyroid: The thyroid is normal. Mediastinum: Heart size is normal without significant pericardial effusion. No suspicious lymphadenopathy. Lungs and airways: There is a large right pleural effusion with adjacent atelectasis. No pneumothorax. Mild atelectasis within the right lung base. The airways are normal. Upper abdomen: The subphrenic structures are normal. Musculoskeletal: Degenerative changes of the spine without suspicious osseous lesion or compression fracture. IMPRESSION: 1. Large right pleural effusion with adjacent atelectasis. 2. No finding of pulmonary embolus. Dictated by: Dictated on workstation # [id number] Dict: 07/24/22 1547 Trans: 07/24/22 1556 [facility] [id number] Interpreted by: HUMPHREY ADLER DO Electronically signed by: HUMPHREY ADLER DO 07/24/22 1556 Assessment/Plan Assessment/Plan Assessment/Plan AHRF COPD Exacerbation Right Pleural Effusion GABRIEL HTN Hypothyroidism Plan Plan on US guided right thoracentesis as long as there is a large enough fluid pocket. Discussed risks and benefits with patient. Primary Risks including: Bleeding, Infection, Pneumothorax. They are agreeable to procedure, and understand that if we do not find a large enough pocket to drain we will not proceed. Patient was given Lovenox at 830PM last night. PATRIC OFNG DO 07/25/22 1320: History of Present Illness History of Present Illness Time Seen by Provider: 11:21 History of Present Illness Surgery asked to consult regarding Hypoxia and Pleural effusion. HPI per ED: Mr. Greco is a 77-year-old gentleman who presents to the emergency room in respiratory distress. On initial assessment he is moving air poorly, employing accessory muscle use, and has an oxygen saturation of 64%. He was immediately placed on a high flow mask. He is visiting the area for the holiday and normally lives in the [facility]. He uses the [place]. He describes history of COPD, obstructive sleep apnea, hypertension, and hypothyroidism. He does not require oxygen use at home. He has used DuoNeb in both the inhaled and nebulized form today. He has not felt well for about the past 4 days. He denies cough or fever. He denies chest pain. When I saw pt he stated he had never had anything like this before; he does have lung problems. He is not on home O2, but does use CPAP at night. He was currently having some SOB and trouble with deep breathing; he was on an Oxy-mask at 10L. Allergies and Home Medications Allergies Coded Allergies: No Known Drug Allergies (Unverified , 07/24/22) Patient Home Medication List Home Medication List Reviewed: Yes Past Ixawnmq-Nbsqsa-Zuamdw Hx Patient Social History Smoking Status: Former Smoker (10 year pack history ) Alcohol Use?: No Surgeries History of Surgeries: Yes Surgeries: Gallbladder Respiratory History of Respiratory Disorde: Yes Respiratory Disorders: Sleep Apnea, COPD Cardiovascular History of Cardiac Disorders: Yes Cardiac Disorders: Hypertension Neurological History of Neurological Disord: No Genitourinary History of Genitourinary Disor: No Gastrointestinal History of Gastrointestinal Di: No Musculoskeletal History of Musculoskeletal Dis: Yes Musculoskeletal Disorders: Arthritis Endocrine History of Endocrine Disorders: Yes Endocrine Disorders: Hypothyroidsim HEENT History of HEENT Disorders: No Loss of Vision: Denies Hearing Impairment: Hard of Hearing Cancer History of Cancer: No Psychosocial History of Psychiatric Problem: No Integumentary History of Skin or Integumenta: No Family Medical History Significant Family History: Cancer (bladder, prostate ), CVA Review of Systems-General Constitutional: No chills, No diaphoresis EENTM: hearing loss (presbycusis ); No blurred vision, No double vision Respiratory: cough, dyspnea on exertion, short of breath Cardiovascular: No chest pain, No palpitations Gastrointestinal: No abdominal pain; constipation, diarrhea; No nausea, No vomiting Genitourinary: No dysuria, No frequency Musculoskeletal: back pain, joint pain, joint swelling, muscle stiffness Skin: No change in color, No change in hair/nails Psychiatric/Neurological: Denies Anxiety, Denies Depressed, Denies Seizure, Denies Tremors Physical Exam-General Problems Physical Exam General Appearance: WD/WN, mild distress (not tolerating BiPAP mask well ) Eyes: Bilateral Eye PERRL, Bilateral Eye EOMI HEENT: pharynx normal; No scleral icterus (R), No scleral icterus (L) Neck: non-tender, supple Respiratory: respiratory distress (appears to be "heaving" to take breaths), decreased breath sounds, accessory muscle use, crackles Cardiovascular: regular rate, rhythm (Auscultation very faint due to BiPAP interference ), no murmur Gastrointestinal: non tender, soft, no organomegaly Rectal: deferred Back: no CVA tenderness, no vertebral tenderness Extremities: non-tender, no pedal edema, no calf tenderness Neurologic/Psychiatric: alert, oriented x 3 Skin: normal color, warm/dry Lymphatic: no adenopathy (neck, axilla or groin) Assessment/Plan Assessment/Plan Assessment/Plan Acute Hypoxic Respiratory Failure COPD Exacerbation Right Pleural Effusion GABRIEL HTN Hypothyroidism Plan Plan on US guided right thoracentesis as long as there is a large enough fluid pocket. Discussed risks and benefits with patient. Primary Risks including: Bleeding, Infection, Pneumothorax. They are agreeable to procedure, and understand that if we do not find a large enough pocket to drain we will not proceed. Patient was given Lovenox at 830PM last night. I reviewed the CT and Xray myself and discussed the case with Dr. Renee. I also attempted to US myself and could not get a good picture of the fluid pocket. Had US tech come in and able to get good image and plan for the Thoracentesis. All questions answered to his satisfaction. We did talk about increased bleeding (because of the Lovenox), the risk of Pneumothorax and also the fact that draining the fluid may not change anything. He wants to try it. Supervisory-Addendum Brief Verification & Attestation Participated in pt care: history, MDM, physical Personally performed: exam, history, MDM, supervision of care Care discussed with: Medical Student Procedures: n/a Verification and Attestation of Medical Student E/M Service A medical student performed and documented this service. I then reviewed and verified all information documented by the medical student and made modifications to such information, when appropriate. I personally performed a physical exam, medical decision making and then discussed any differences between the notes and made revisions as necessary to create one note. Patric Fong , 07/25/22 , 13:24 DARCI NOEL Jul 25, 2022 10:45 PATRIC FONG DO Jul 25, 2022 13:20
[2022-07-25] MEDS ORDERED: LIDOCAINE 1% INJ 20 ML VIAL ONE (10:56)
--- NOTE | 2022-07-25 13:09 | Diagnostic Imaging Report ---
EXAM: Ultrasound guidance for thoracentesis. EXAM DATE: 07/25/2022 COMPARISON: None HISTORY: Pleural effusion. TECHNIQUE: Ultrasound guidance for thoracentesis. FINDINGS: Ultrasound guidance is provided for thoracentesis. Pocket of fluid is seen within the right pleural cavity. IMPRESSION: Ultrasound guidance for thoracentesis. Please see operative report for more details. Dictated by: Dictated on workstation # [id number]
[2022-07-25] MEDS ORDERED: LIDOCAINE 1% INJ 20 ML VIAL INJ ONE (13:15)
[2022-07-25 13:24] LABS: BODY FLUID RBC COUNT 0.012 10^6/uL; BODY FLUID WBC TOTAL COUNT 4.657 10^3/uL
--- NOTE | 2022-07-25 13:29 | Progress Note-Post Operative ---
Post-Operative Progess Note Surgeon (s)/Taping Foreman (s) Surgeon PATRIC FONG DO Taping Foreman: FANNY Gillette Pre-Operative Diagnosis Right pleural effusion Post-Operative Diagnosis same pending path Procedure & Operative Findings Date of Procedure 07/25/22 Procedure Performed/Findings Right Thoracentesis A time out was performed and the chest x-ray was reviewed, the appropriate side was confirmed and marked. The patient was prepped and draped in a sterile manner using chlorhexidine scrub after the appropriate level was percussed and confirmed by ultrasound. 1% lidocaine was used to anesthesize the skin, subcutaneous tissue, superior aspect of the rib periosteum and parietal pleura. . A #11 blade scalpel was used to judi the skin at the insertion site; which was around 8 or 9th rib. The Wsmh-[id number]-Mmnpxykg needle was then introduced through the skin incision into the pleural space using negative aspiration pressure and got an immediate return of a darker fluid. The thoracentesis catheter was then threaded without difficulty. Approximately 2100 ml of dark straw colored fluid was removed without difficulty. The catheter was then removed. No immediate complications were noted during the procedure. A post-procedure chest x-ray is pending at the time of this note. The fluid will be sent for studies. Estimated blood loss is scant. Anesthesia Type Local lidocaine Estimated Blood Loss Estimated blood loss (mL): scant Specimens/Packing Specimens Removed appx 2100ml of fluid PATRIC FONG DO Jul 25, 2022 13:29
--- NOTE | 2022-07-25 13:30 | Diagnostic Imaging Report ---
EXAMINATION: Chest 1 view HISTORY: Postthoracentesis COMPARISON: 07/24/2022 FINDINGS: Right pleural effusion is decreased in size. No pneumothorax. No edema or pneumonia. Heart size is normal. IMPRESSION: 1. Decrease in size if right pleural effusion. No pneumothorax. Dictated by: Dictated on workstation # [id number]
[2022-07-25 13:45] LABS: BODY FLUID SOURCE PLEURAL
[2022-07-25 13:46] LABS: GLUCOSE,BODY FLUID 127 MG/DL; TOTAL PROTEIN,BODY FLUID 4.9 G/DL
[2022-07-25 14:05] LABS: BODY FLUID COLOR YELLOW
[2022-07-25 14:06] LABS: BODY FLUID APPEARENCE MOD CLDY
[2022-07-25] MEDS: SENNOSIDES 8.6 MG (SENOKOT) TAB PO SCH ×2 (14:44→19:33)
[2022-07-25] MEDS: DOCUSATE SODIUM 100 MG (COLACE) CAP PO SCH ×2 (14:44→19:33)
--- NOTE | 2022-07-25 18:50 | History & Physical-Hospitalist ---
History of Present Illness HPI/Chief Complaint Lauri Greco is a 77 year old male with PMH HTN, COPD, GABRIEL, hypothyroidism, obesity, who presented with shortness of breath. He does not use oxygen at baseline. He has been having worsening breathing trouble for several days. He has had a cough. He denies fevers and chills. He denies chest pain. He denies abdominal pain, nausea, and vomiting. He has never had a pleural effusion. [facility] patient Exam Limitations: no limitations Date Seen 07/25/22 Time Seen by a Provider: 09:50 Attending Physician No,Local Physician PCP Admitting Physician: Jono Webber MD Attending Physician: Jono Webber MD Referring Physician Date of Admission Jul 24, 2022 at 18:08 Home Medications & Allergies Home Medications Reviewed patient Home Medication Reconciliation performed by pharmacy medication reconciliations criminal records technician and/or nursing. Patients Allergies have been reviewed. Allergies Allergies Coded Allergies No Known Drug Allergies (Owrvypcmnl79/26/22) Past Lcrkcmb-Xwlisz-Qkmafo Hx Patient Social History Tobacco Use?: No Smoking Status: Former Smoker (10 year pack history ) Smokeless type used: Chew Smokeless Tobacco Frequency: Current Everyday User Use of E-Cig and/or Vaping dev: No Use of E-Cig and/or Vaping Jordan: Never a User Substance use?: No Substance type: Nicotine Alcohol Use?: No Pt feels they are or have been: No Current Status Advance Directives: No Communicates: Verbally Primary Language: Citizen Of [place] Preferred Spoken Language: Citizen Of [place] Is interpretation needed?: No Sensory deficits: Vision impairment, Hearing impairment Implanted or Applied Medical D: Other Past Medical History Surgeries: Gallbladder Sleep Apnea, COPD Currently Using CPAP: Yes Hypertension Arthritis Hypothyroidsim Loss of Vision: Denies Hearing Impairment: Hard of Hearing Family Medical History Cancer (bladder, prostate ), CVA Review of Systems Constitutional: no symptoms reported EENTM: no symptoms reported Respiratory: cough, short of breath Cardiovascular: no symptoms reported Gastrointestinal: no symptoms reported Physical Exam Physical Exam Vital Signs Vital Signs - First Documented 07/24/22 07/24/22 12:50 19:39 Temp 36.2 Pulse 86 Resp 33 B/P (MAP) 169/101 (123) Pulse Ox 91 O2 Delivery Nasal Cannula O2 Flow Rate 5.00 FiO2 40 Capillary Refill : Less Than 3 Seconds Height, Weight, BMI Height: '" Weight: lbs. oz. kg; 33.65 BMI Method: General Appearance: No Apparent Distress, Obese HEENT: PERRL/EOMI, Pharynx Normal Neck: Normal Inspection, Supple Respiratory: No Respiratory Distress, Decreased Breath Sounds Cardiovascular: Regular Rate, Rhythm, No Murmur Gastrointestinal: Normal Bowel Sounds, Non Tender, Soft Extremity: Normal Inspection, No Pedal Edema Neurologic/Psychiatric: Alert, Normal Mood/Affect Skin: Normal Color, Warm/Dry Results Results/Procedures Labs Laboratory Tests 07/24/22 13:30 07/25/22 04:03 Patient resulted labs reviewed. Imaging: Reviewed Imaging Films, Reviewed Imaging Report Assessment/Plan Admission Diagnosis Acute respiratory failure with hypoxia Admission Status: Inpatient Order (span 2 midnights) Reason for Inpatient Admission: Pleural effusion Assessment and Plan Acute respiratory failure with hypoxia Pleural effusion Requiring supplemental oxygen, wean as able Imaging with pleural effusion Surgery consulted Planning for thoracentesis today HTN COPD GABRIEL Hypothyroidism Obesity Resume home meds once med rec completed DVT prophylaxis: Lovenox Diagnosis/Problems Diagnosis/Problems (1) Acute respiratory failure with hypoxia Status: Acute (2) Pleural effusion, right Status: Acute (3) COPD (chronic obstructive pulmonary disease) Status: Chronic (4) HTN (hypertension) Status: Chronic (5) Hypothyroidism Status: Chronic (6) Obesity Status: Chronic (7) GABRIEL (obstructive sleep apnea) Status: Chronic JONO WEBBER MD Jul 25, 2022 18:50
[2022-07-25] MEDS: ENOXAPARIN 40 MG/0.4 ML (LOVENOX) SYR SC SCH (20:39)
[2022-07-25 22:26] VITALS: BP 116/70
[2022-07-26 03:02] VITALS: BP 101/75
[2022-07-26] MEDS: RT-ALBUTEROL SULF 2.5 MG/3 ML PRE-MIX VIAL INH SCH ×6 (03:02→22:37)
[2022-07-26 05:08] LABS: BASOPHILS % (AUTO) 0 % (0-10); EOSINOPHILS % (AUTO) 0 % (0-10); HEMATOCRIT 47 % (40-54); HEMOGLOBIN 15.3 g/dL (13.3-17.7); LYMPHOCYTES # (AUTO) 1.2 10^3/uL (1.0-4.0); LYMPHOCYTES % (AUTO) 9 % (12-44); MEAN CORPUSCULAR HEMOGLOBIN 30 pg (25-34); MEAN CORPUSCULAR HGB CONC 33 g/dL (32-36); MEAN CORPUSCULAR VOLUME 91 fL (80-99); MEAN PLATELET VOLUME 11.1 fL (9.0-12.2); MONOCYTES # (AUTO) 1.2 10^3/uL (0.0-1.0); MONOCYTES % (AUTO) 9 % (0-12); NEUTROPHILS # (AUTO) 10.7 10^3/uL (1.8-7.8); NEUTROPHILS % (AUTO) 81 % (42-75); PLATELET COUNT 193 10^3/uL (130-400); WHITE BLOOD COUNT 13.2 10^3/uL (4.3-11.0)
[2022-07-26 05:35] LABS: CALCIUM 8.6 MG/DL (8.5-10.1); CREATININE SERUM 0.84 MG/DL (0.60-1.30); POTASSIUM 3.6 MMOL/L (3.6-5.0)
[2022-07-26] MEDS: POTASSIUM CL 10MEQ/50ML IVPB 50 ML IV SCH (05:45)
[2022-07-26] MEDS: MAGNESIUM 1 GM/100 ML IVPB 100 ML IV SCH (05:45)
[2022-07-26] MEDS: KCL 20 MEQ TAB (K-DUR) PO SCH (05:45)
[2022-07-26] MEDS ORDERED: LEVO25TA5 PO (07:58)
[2022-07-26] MEDS ORDERED: ATEN50TA PO (07:58)
[2022-07-26] MEDS ORDERED: IPRA4AER IH (07:58)
[2022-07-26] MEDS ORDERED: ALBUTEROL/IPRATROP (COMBIVENT RESPIMAT) 4 GM INHALER IH PRN (08:00)
[2022-07-26] MEDS ORDERED: PATIENT MAY USE OWN MEDS, ALL MC SCH (08:00)
[2022-07-26] MEDS: DOCUSATE SODIUM 100 MG (COLACE) CAP PO SCH ×3 (09:02→20:10)
[2022-07-26] MEDS: SENNOSIDES 8.6 MG (SENOKOT) TAB PO SCH ×3 (09:03→20:10)
--- NOTE | 2022-07-26 09:05 | Progress Note - Hospitalist ---
Subjective HPI/CC On Admission Date Seen by Provider: Jul 26, 2022 Lauri Greco is a 77 year old male with PMH HTN, COPD, GABRIEL, hypothyroidism, obesity, who presented with shortness of breath. He does not use oxygen at baseline. He has been having worsening breathing trouble for several days. He has had a cough. He denies fevers and chills. He denies chest pain. He denies abdominal pain, nausea, and vomiting. He has never had a pleural effusion. [facility] Subjective/Events-last exam Pt reports feeling much better today. Breathing easier. Discussed with patient and his on the phone. Objective Exam Vital Signs Vital Signs Date Time Temp Pulse Resp B/P (MAP) Pulse Ox O2 Delivery O2 Flow Rate FiO2 07/26/22 08:42 36.5 Nasal Cannula 4.00 07/26/22 08:00 90 07/26/22 06:54 61 07/26/22 06:00 105/73 (84) 07/26/22 05:00 19 07/26/22 03:57 40 Capillary Refill : Less Than 3 Seconds General Appearance: No Apparent Distress, WD/WN Respiratory: Lungs Clear, No Accessory Muscle Use, No Respiratory Distress, Other (on oxi-mask) Cardiovascular: Regular Rate, Rhythm, No Murmur Neurologic/Psychiatric: Alert, Oriented x3 Results/Procedures Lab Laboratory Tests 07/26/22 04:30 Patient resulted labs reviewed. Imaging: Reviewed Imaging Films, Reviewed Imaging Report Assessment/Plan Assessment and Plan Assess & Plan/Chief Complaint Acute respiratory failure with hypoxia Pleural effusion Requiring supplemental oxygen, wean as able Imaging with pleural effusion Surgery consulted, appreciate recs s/p thoracentesis with 2.1L drained Await cultures and path HTN COPD GABRIEL Hypothyroidism Obesity Resume home meds once med rec completed DVT prophylaxis: MELO Cox MD Jul 26, 2022 09:05
--- NOTE | 2022-07-26 09:24 | Tele-ICU Progress Note ---
Subjective Date Seen by a Provider: Jul 26, 2022 Time Seen by a Provider: 09:22 Subjective/Events-last exam (Tele-ICU Physician , Progress Note ) Service provided via interactive audio and video telecommunications E-CARE system to a patient admitted to ICU bed in [facility]. Available chart/ vitals / labs / Images reviewed Video assessment done using teleICU camera, rest of exam as per RN Discussed with RN Events overnight : Afebrile hemodynamically stable Respiratory - NC 4L I/O = neg Drips: Pressors- no A/P Acute resp failure ) no pe , large effusion on right with atelectasis vs infiltrate - small - on BIPAP 14/6 40 % , rr 32 TV 500 - AAO - NOW ON 5L -s/p RIGHT thora 07/25 -2099 removed - cxr after thora clear - attempt to wean Right basilar airspace opacity/ Large right pleural effusion - etiology is not clear -s/p RIGHT thora 07/25 -2099 removed , await w/up - cxr after thora clear COPD ( no sign emphysema on CT - ? exacerbation - as per bedside - received one dose of steroids in ER GABRIEL - reported - on CPAP at home - TO CONT nightly Leukocytes - ? steroids related bs infection - off abx now - neg flu and covid Lines : , (Central Line Necessity Reviewed) Sales: + OG: Nutrition: po Analgesia: Anxiety/ delirium VTE Prophylaxis: samira 40 Stress Ulcer Prophylaxis: na Plans in collaboration with bedside consultants and IM MDs. Discussed with RN to reach out if any questions or concerns A total of 22 minutes of critical care time was devoted to this patient today, required to treat and/or prevent further deterioration of critical care condition ( as above ) . I am remotely monitoring this patient from another state. I am unable to do the bedside exam, and history/physical and pertinent information is taken from other notes in the computer and bedside staff. + Sepsis Event Evaluation Height, Weight, BMI Height: '" Weight: lbs. oz. kg; 33.65 BMI Method: Exam Exam Patient acknowledged, consented, and participated in this virtual visit which was conducted using real time audio/video Vital Signs Date Time Temp Pulse Resp B/P (MAP) Pulse Ox O2 Delivery O2 Flow Rate FiO2 07/26/22 08:42 36.5 Nasal Cannula 4.00 07/26/22 08:00 90 OxyMask 2.00 07/26/22 07:46 92 OxyMask 2.00 07/26/22 06:54 61 07/26/22 06:00 65 105/73 (84) 95 OxyMask 2.00 07/26/22 05:00 69 19 99/69 (79) 94 OxyMask 2.00 07/26/22 04:00 69 12 113/72 (86) 92 OxyMask 2.00 07/26/22 03:57 94 NIV Bilevel 2.00 40 07/26/22 03:02 73 24 94 40.00 07/26/22 03:00 65 8 101/75 (84) 94 OxyMask 2.00 07/26/22 02:00 73 93/59 (70) 96 OxyMask 2.00 07/26/22 01:00 71 07/26/22 01:00 71 25 109/78 (88) 94 OxyMask 2.00 07/26/22 00:00 77 20 121/72 (88) 95 OxyMask 2.00 07/25/22 23:59 94 NIV Bilevel 2.00 40 07/25/22 23:00 78 17 101/75 (84) 95 OxyMask 2.00 07/25/22 22:26 80 17 95 40.00 07/25/22 22:02 103 116/70 (85) 95 OxyMask 2.00 07/25/22 21:00 84 99/64 (76) 93 OxyMask 2.00 07/25/22 20:00 36.1 07/25/22 20:00 90 111/66 (81) 91 OxyMask 2.00 07/25/22 20:00 95 OxyMask 2.00 07/25/22 19:30 90 109/66 (80) 92 OxyMask 2.00 07/25/22 19:00 91 07/25/22 19:00 91 87/60 (69) 93 OxyMask 2.00 07/25/22 18:59 92 OxyMask 2.00 07/25/22 18:00 87 111/75 (87) 94 High Flow N/C 5.00 07/25/22 17:00 93 117/68 (84) 93 High Flow N/C 5.00 07/25/22 16:00 35.9 07/25/22 16:00 95 105/72 (83) 93 High Flow N/C 5.00 07/25/22 16:00 94 OxyMask 4.50 07/25/22 15:01 94 OxyMask 5.00 07/25/22 15:00 89 113/74 (87) 92 High Flow N/C 5.00 07/25/22 14:24 High Flow N/C 5.00 07/25/22 14:00 86 126/72 (90) 92 OxyMask 10.00 07/25/22 13:00 85 07/25/22 13:00 80 23 103/76 (85) 91 OxyMask 10.00 07/25/22 12:00 79 19 112/72 (85) 94 OxyMask 10.00 07/25/22 12:00 95 OxyMask 10.00 07/25/22 11:55 36.3 07/25/22 11:00 76 24 123/80 (94) 95 OxyMask 10.00 07/25/22 10:58 95 OxyMask 10.00 07/25/22 10:45 OxyMask 10.00 07/25/22 10:00 81 20 130/75 (93) 95 High Flow N/C 6.00 I & O 07/26/22 07:00 Intake Total 800 ml Output Total 575 ml Balance 225 ml Height & Weight Height: '" Weight: lbs. oz. kg; 33.65 BMI Method: General Appearance: No Apparent Distress, WD/WN HEENT: PERRL/EOMI, Pharynx Normal Neck: Normal Inspection, Supple Respiratory: Lungs Clear, No Accessory Muscle Use, No Respiratory Distress, Other (on oxi-mask) Cardiovascular: Regular Rate, Rhythm, No Murmur Capillary Refill: Less Than 3 Seconds Gastrointestinal: non tender, soft, no organomegaly Extremity: Normal Inspection, No Pedal Edema Neurologic/Psychiatric: Alert, Oriented x3 Skin: Normal Color, Warm/Dry Results Lab Laboratory Tests 07/24/22 13:30 07/25/22 04:03 07/26/22 04:30 Assessment/Plan Assessment/Plan 1 ELODIA GALARZA MD Jul 26, 2022 09:24
[2022-07-26] MEDS: ATENOLOL 50MG TABLET PO SCH (09:54)
[2022-07-26] MEDS: LEVOTHYROXINE 25 MCG (LEVOTHROID) TAB PO SCH (09:55)
[2022-07-26 11:27] VITALS: BP 100/62
--- NOTE | 2022-07-26 11:32 | Progress Note - Surgery ---
Subjective Time Seen by a Provider: 10:01 Subjective/Events-last exam Pt seen and examined, state he is breathing much better and no chest pain. Nurse states he is on much less O2 than before. Review of Systems General: No Chills, No Night Sweats Pulmonary: Dyspnea; No Cough, No Pleuritic Chest Pain Cardiovascular: No: Chest Pain, Palpitations Gastrointestinal: No: Nausea, Vomiting, Abdominal Pain Objective Exam Vital Signs Date Time Temp Pulse Resp B/P (MAP) Pulse Ox O2 Delivery O2 Flow Rate FiO2 07/26/22 10:50 96 OxyMask 2.00 07/26/22 10:45 97 OxyMask 4.00 07/26/22 10:00 87 33 113/75 (88) 92 OxyMask 4.00 07/26/22 09:00 87 29 109/74 (86) 92 Nasal Cannula 4.00 07/26/22 08:42 36.5 Nasal Cannula 4.00 07/26/22 08:00 90 OxyMask 2.00 07/26/22 08:00 73 21 112/62 (79) 91 OxyMask 2.00 07/26/22 07:46 92 OxyMask 2.00 07/26/22 07:00 64 109/74 (86) 93 OxyMask 2.00 07/26/22 06:54 61 07/26/22 06:00 65 105/73 (84) 95 OxyMask 2.00 07/26/22 05:00 69 19 99/69 (79) 94 OxyMask 2.00 07/26/22 04:00 69 12 113/72 (86) 92 OxyMask 2.00 07/26/22 03:57 94 NIV Bilevel 2.00 40 07/26/22 03:02 73 24 94 40.00 07/26/22 03:00 65 8 101/75 (84) 94 OxyMask 2.00 07/26/22 02:00 73 93/59 (70) 96 OxyMask 2.00 07/26/22 01:00 71 07/26/22 01:00 71 25 109/78 (88) 94 OxyMask 2.00 07/26/22 00:00 77 20 121/72 (88) 95 OxyMask 2.00 07/25/22 23:59 94 NIV Bilevel 2.00 40 07/25/22 23:00 78 17 101/75 (84) 95 OxyMask 2.00 07/25/22 22:26 80 17 95 40.00 07/25/22 22:02 103 116/70 (85) 95 OxyMask 2.00 07/25/22 21:00 84 99/64 (76) 93 OxyMask 2.00 07/25/22 20:00 36.1 07/25/22 20:00 90 111/66 (81) 91 OxyMask 2.00 07/25/22 20:00 95 OxyMask 2.00 07/25/22 19:30 90 109/66 (80) 92 OxyMask 2.00 07/25/22 19:00 91 07/25/22 19:00 91 87/60 (69) 93 OxyMask 2.00 07/25/22 18:59 92 OxyMask 2.00 07/25/22 18:00 87 111/75 (87) 94 High Flow N/C 5.00 07/25/22 17:00 93 117/68 (84) 93 High Flow N/C 5.00 07/25/22 16:00 35.9 07/25/22 16:00 95 105/72 (83) 93 High Flow N/C 5.00 07/25/22 16:00 94 OxyMask 4.50 07/25/22 15:01 94 OxyMask 5.00 07/25/22 15:00 89 113/74 (87) 92 High Flow N/C 5.00 07/25/22 14:24 High Flow N/C 5.00 07/25/22 14:00 86 126/72 (90) 92 OxyMask 10.00 07/25/22 13:00 85 07/25/22 13:00 80 23 103/76 (85) 91 OxyMask 10.00 07/25/22 12:00 79 19 112/72 (85) 94 OxyMask 10.00 07/25/22 12:00 95 OxyMask 10.00 07/25/22 11:55 36.3 I & O 07/26/22 07:00 Intake Total 800 ml Output Total 575 ml Balance 225 ml Capillary Refill : Less Than 3 Seconds General Appearance: No Apparent Distress (still breathing a little hard though), WD/WN HEENT: PERRL/EOMI Respiratory: No Accessory Muscle Use, No Respiratory Distress, Crackles, Decreased Breath Sounds (diminished throughout) Cardiovascular: Regular Rate, Rhythm, No Murmur Gastrointestinal: non tender, soft, no organomegaly Extremity: No Pedal Edema Neurologic/Psychiatric: Alert, Oriented x3 Results Lab Laboratory Tests 07/25/22 13:00: Body Fluid Source PLEURAL, Body Fluid Color YELLOW, Body Fluid Appearance MOD CLDY, Body Fluid WBC 4.657, Body Fluid RBC 0.012, Body Fl Polynuclear WBCs (%)(Auto) 77.9, Body Fluid Mononuclear Cells % Auto 22.1, Body Fluid Slide Review Yes, Body Fluid Glucose 127, Body Fluid Total Protein 4.9 07/26/22 04:30: White Blood Count 13.2H, Red Blood Count 5.11, Hemoglobin 15.3, Hematocrit 47, Mean Corpuscular Volume 91, Mean Corpuscular Hemoglobin 30, Mean Corpuscular Hemoglobin Concent 33, Red Cell Distribution Width 13.1, Platelet Count 193, Mean Platelet Volume 11.1, Immature Granulocyte % (Auto) 0, Neutrophils (%) (Auto) 81H, Lymphocytes (%) (Auto) 9L, Monocytes (%) (Auto) 9, Eosinophils (%) (Auto) 0, Basophils (%) (Auto) 0, Neutrophils # (Auto) 10.7H, Lymphocytes # (Auto) 1.2, Monocytes # (Auto) 1.2H, Eosinophils # (Auto) 0.0, Basophils # (Auto) 0.0, Immature Granulocyte # (Auto) 0.1, Sodium Level 134L, Potassium Level 3.6, Chloride Level 99, Carbon Dioxide Level 23, Anion Gap 12, Blood Urea Nitrogen 24H, Creatinine 0.84, Estimat Glomerular Filtration Rate 91, BUN/Creatinine Ratio 29, Glucose Level 102, Calcium Level 8.6, Magnesium Level 2.0 Microbiology 07/25/22 Gram Stain - Final, Resulted 07/25/22 Body Fluid Culture - Preliminary, Resulted 07/24/22 MRSA Screen - Final, Complete MRSA not isolated Assessment/Plan Assessment/Plan Assessment/Plan Acute Hypoxic Respiratory Failure - improved, using less O2 COPD Exacerbation Right Pleural Effusion - repeat CXR showed improvement and no pnuemothorax GABRIEL HTN Hypothyroidism Plan Pt told to work with RT for breathing and treatments as needed. No pleural effusion. Will sign off and reconsult if needed. PATRIC FONG DO Jul 26, 2022 11:32
[2022-07-26] MEDS: ENOXAPARIN 40 MG/0.4 ML (LOVENOX) SYR SC SCH (20:10)
[2022-07-26 22:37] VITALS: BP 98/62
[2022-07-27 02:47] VITALS: BP 90/59
[2022-07-27] MEDS: RT-ALBUTEROL SULF 2.5 MG/3 ML PRE-MIX VIAL INH SCH ×6 (02:47→21:30)
[2022-07-27 04:58] LABS: BASOPHILS # (AUTO) 0.1 10^3/uL (0.0-0.1); BASOPHILS % (AUTO) 1 % (0-10); EOSINOPHILS # (AUTO) 0.3 10^3/uL (0.0-0.3); EOSINOPHILS % (AUTO) 4 % (0-10); HEMATOCRIT 47 % (40-54); HEMOGLOBIN 15.3 g/dL (13.3-17.7); LYMPHOCYTES # (AUTO) 1.6 10^3/uL (1.0-4.0); LYMPHOCYTES % (AUTO) 22 % (12-44); MEAN CORPUSCULAR HEMOGLOBIN 30 pg (25-34); MEAN CORPUSCULAR HGB CONC 32 g/dL (32-36); MEAN CORPUSCULAR VOLUME 92 fL (80-99); MONOCYTES # (AUTO) 0.8 10^3/uL (0.0-1.0); MONOCYTES % (AUTO) 11 % (0-12); NEUTROPHILS # (AUTO) 4.4 10^3/uL (1.8-7.8); NEUTROPHILS % (AUTO) 61 % (42-75); PLATELET COUNT 169 10^3/uL (130-400); WHITE BLOOD COUNT 7.1 10^3/uL (4.3-11.0)
[2022-07-27 05:19] LABS: CALCIUM 8.5 MG/DL (8.5-10.1); CREATININE SERUM 0.81 MG/DL (0.60-1.30); MAGNESIUM 2.1 MG/DL (1.6-2.4); POTASSIUM 3.5 MMOL/L (3.6-5.0)
[2022-07-27] MEDS: MAGNESIUM 1 GM/100 ML IVPB 100 ML IV SCH (05:43)
[2022-07-27] MEDS ORDERED: KCL 20 MEQ TAB (K-DUR) PO ONE (05:45)
[2022-07-27] MEDS: KCL 20 MEQ TAB (K-DUR) PO SCH (05:51)
[2022-07-27] MEDS: POTASSIUM CL 10MEQ/50ML IVPB 50 ML IV SCH (05:51)
[2022-07-27] MEDS: LEVOTHYROXINE 25 MCG (LEVOTHROID) TAB PO SCH (08:22)
[2022-07-27] MEDS: SENNOSIDES 8.6 MG (SENOKOT) TAB PO SCH ×2 (08:22→21:03)
[2022-07-27] MEDS: ATENOLOL 50MG TABLET PO SCH (08:23)
[2022-07-27] MEDS: DOCUSATE SODIUM 100 MG (COLACE) CAP PO SCH ×2 (08:23→21:03)
--- NOTE | 2022-07-27 10:42 | Physical Therapy Evaluation ---
PT Evaluation-General Medical Diagnosis Admission Date Jul 24, 2022 at 18:08 Medical Diagnosis: Acute Respiratory Failure Onset Date: Jul 24, 2022 Therapy Diagnosis Therapy Diagnosis: Gait deficit Precautions Precautions/Isolations: Fall Prevention, Standard Precautions Weight Bear Status Right Lower Extremity: Right Full Weight Bearing Left Lower Extremity: Left Full Weight Bearing Referral Physician: Dr. Brown Reason for Referral: Evaluation/Treatment Medical History Reviewed History: Yes Social History Home: Single Level Current Living Status: Significant Other Entry Into Home: Stairs With Railing PT Steps Into Home: 5 Prior Prior Level of Function SCALE: Activities may be completed with or without assistive devices. 3-Wyhsgorcee-aamoktg completes the activity by him/herself with no assistance from a helper. 5-Set-up or Clean-up Assistance-helper sets up or cleans up; patient completes activity. Delia assists only prior to or following the activity. 4-Supervision or Touching Assistance-helper provides verbal cues and/or touching/steadying and/or contact guard assistance as patient completes activity. Assistance may be provided throughout the activity or intermittently. 3-Partial/Moderate Assistance-helper does LESS THAN HALF the effort. Delia lifts, holds or supports trunk or limbs, but provides less than half the effort. 2-Substantial/Maximal Assistance-helper does MORE THAN HALF the effort. Delia lifts or holds trunk or limbs and provides more than half the effort. 5-Tkfilaqvq-uaqcxf does ALL the effort. Patient does none of the effort to complete the activity. Or, the assistance of 2 or more helpers is required for the patient to complete the activity. If activity was not attempted, code reason: 7-Patient Refused. 9-Not Applicable-not attempted and the patient did not perform the activity before the current illness, exacerbation or injury. 10-Not Attempted due to Environmental Limitations-(lack of equipment, weather restraints, etc.). 88-Not Attempted due to Medical Conditions or Safety Concerns. Bed Mobility: 6 Transfers (B,C,W/C): 6 Gait: 6 Stairs: 6 Indoor Mobility (Ambulation): Independent Stairs: Independent Prior Devices Use: Walker Prior Device Use: Cane PT Evaluation-Current Subjective Patient lying supine in bed upon PT arrival, agreeable to treatment. Patient rates pain at 0/10 currently Objective Patient Orientation: Person, Place, Time, Situation Attachments: Oxygen, IV ROM/Strength ROM Lower Extremities WFLs all planes with AROM bilaterally Strength Lower Extremities 4-/5 all planes bilaterally Sensory Vision: Wears Glasses Hearing: Functional Sensation Right Lower Extremit: Intact Sensation Left Lower Extremity: Intact Transfers Roll Left to Right (QC): 3 Sit to Lying (QC): 3 Lying to Sitting/Side of Bed(Q: 3 Sit to Stand (QC): 4 Chair/Xuh-au-Lkngk Xfer(QC): 4 Gait Does the Patient Walk?: Yes Mode of Locomotion: Walk Anticipated Mode of Locomotion: Walk Walk 10 feet (QC): 3 Distance: 30 Gait Assistive Device: FWW Balance Sitting Static: Good Sitting Dynamic: Good Standing Static: Fair Standing Dynamic: Fair Assessment/Needs Patient tolerated treatment and evaluation fair. Patient performs all bed mobility and transfers with CGA/min. Patient requires mod A to avoid falling when he initiates gait. Rehab Potential: Fair PT Crew Member Goals Chcf Goals PT Chcf Goals Time Frame: Aug 28, 2022 Roll Left & Right (QC): 6 Sit to Lying (QC): 6 Lying-Sitting on Side/Bed(QC): 6 Sit to Stand (QC): 6 Chair/Lgd-rc-Phabl Xfer(QC): 6 Toilet Transfer (QC): 6 Does the Patient Walk: Yes Walk 10 feet (QC): 6 Walk 50ft with 2 Turns (QC): 6 Walk 150 ft (QC): 6 1 Step (curb) (QC): 4 4 Steps (QC): 4 12 Steps (QC): 4 PT Plan Problem List Problem List: Activity Tolerance, Functional Strength, Safety, Balance, Gait, Transfer, Bed Mobility, ROM Treatment/Plan Treatment Plan: Continue Plan of Care Treatment Plan: Bed Mobility, Education, Functional Activity Arnaud, Functional Strength, Gait, Safety, Therapeutic Exercise, Transfers Treatment Duration: Aug 28, 2022 Frequency: 6 times per week Estimated Hrs Per Day: .25 hour per day Patient and/or Family Agrees t: Yes Safety Risks/Education Patient Education: Gait Training, Transfer Techniques Teaching Recipient: Patient Teaching Methods: Demonstration, Discussion Response to Teaching: Verbalize Understanding, Return Demonstration Time Time In: 950 Time Out: 1015 DATE: Jul 27, 2022 Total Billed Treatment Time: 25 Total Billed Treatment Visit, Kranthi Shannon JOHN A PT Jul 27, 2022 10:42
--- NOTE | 2022-07-27 12:00 | Progress Note - Hospitalist ---
Subjective HPI/CC On Admission Date Seen by Provider: Jul 27, 2022 Lauri Greco is a 77 year old male with PMH HTN, COPD, GABRIEL, hypothyroidism, obesity, who presented with shortness of breath. He does not use oxygen at baseline. He has been having worsening breathing trouble for several days. He has had a cough. He denies fevers and chills. He denies chest pain. He denies abdominal pain, nausea, and vomiting. He has never had a pleural effusion. [facility] Subjective/Events-last exam Pt reports doing much better. Breathing well. No new complaints. Hopeful for DC home soon. Objective Exam Vital Signs Vital Signs Date Time Temp Pulse Resp B/P (MAP) Pulse Ox O2 Delivery O2 Flow Rate FiO2 07/27/22 11:00 75 98/62 (74) 93 NIV Bilevel 40.00 07/27/22 07:51 36.0 07/27/22 04:00 40 07/27/22 02:47 16 Capillary Refill : Less Than 3 Seconds General Appearance: No Apparent Distress, WD/WN Respiratory: Lungs Clear, No Respiratory Distress Cardiovascular: Regular Rate, Rhythm, No Murmur Neurologic/Psychiatric: Alert, Oriented x3 Results/Procedures Lab Laboratory Tests 07/27/22 04:27 Patient resulted labs reviewed. Imaging: Reviewed Imaging Films, Reviewed Imaging Report Assessment/Plan Assessment and Plan Assess & Plan/Chief Complaint Acute respiratory failure with hypoxia Pleural effusion Requiring supplemental oxygen, wean as able Imaging with pleural effusion Surgery consulted, appreciate recs s/p thoracentesis with 2.1L drained Negative cultures and path pending Transfer to [facility] HTN COPD GABRIEL Hypothyroidism Obesity Continue home meds as appropriate DVT prophylaxis: MELO Cox MD Jul 27, 2022 12:00
[2022-07-27 14:31] VITALS: BP 98/64
[2022-07-27] MEDS: ENOXAPARIN 40 MG/0.4 ML (LOVENOX) SYR SC SCH (21:03)
[2022-07-27 21:31] VITALS: BP 95/60
[2022-07-27 23:49] VITALS: BP 92/60
[2022-07-28] MEDS: RT-ALBUTEROL SULF 2.5 MG/3 ML PRE-MIX VIAL INH SCH ×3 (02:49→14:29)
[2022-07-28 03:11] VITALS: BP 103/67
[2022-07-28 06:55] LABS: BASOPHILS # (AUTO) 0.1 10^3/uL (0.0-0.1); BASOPHILS % (AUTO) 1 % (0-10); EOSINOPHILS # (AUTO) 0.7 10^3/uL (0.0-0.3); EOSINOPHILS % (AUTO) 9 % (0-10); HEMATOCRIT 50 % (40-54); HEMOGLOBIN 16.4 g/dL (13.3-17.7); LYMPHOCYTES # (AUTO) 1.6 10^3/uL (1.0-4.0); LYMPHOCYTES % (AUTO) 20 % (12-44); MEAN CORPUSCULAR HEMOGLOBIN 30 pg (25-34); MEAN CORPUSCULAR HGB CONC 33 g/dL (32-36); MEAN CORPUSCULAR VOLUME 93 fL (80-99); MEAN PLATELET VOLUME 11.4 fL (9.0-12.2); MONOCYTES # (AUTO) 0.8 10^3/uL (0.0-1.0); MONOCYTES % (AUTO) 10 % (0-12); NEUTROPHILS # (AUTO) 4.8 10^3/uL (1.8-7.8); NEUTROPHILS % (AUTO) 60 % (42-75); PLATELET COUNT 184 10^3/uL (130-400); WHITE BLOOD COUNT 7.9 10^3/uL (4.3-11.0)
[2022-07-28 07:16] LABS: CALCIUM 8.7 MG/DL (8.5-10.1); CREATININE SERUM 0.84 MG/DL (0.60-1.30); POTASSIUM 3.9 MMOL/L (3.6-5.0)
[2022-07-28] MEDS: MAGNESIUM 1 GM/100 ML IVPB 100 ML IV SCH (07:55)
[2022-07-28] MEDS: KCL 20 MEQ TAB (K-DUR) PO SCH (07:55)
[2022-07-28] MEDS: POTASSIUM CL 10MEQ/50ML IVPB 50 ML IV SCH (07:55)
[2022-07-28 08:14] VITALS: BP 96/64
--- NOTE | 2022-07-28 09:14 | Discharge Inst-Simple/Standard ---
Discharge Inst-Standard Discharge Medications New, Converted or Re-Newed RX: Transmitted to Pharmacy Patient Instructions/Follow Up Plan of Care/Instructions/FU: Please continue to take your medications as written. Please follow up with your primary care doctor to follow up this hospital stay. Activity as Tolerated: Yes Discharge Diet: No Restrictions Return to The Hospital For: Chest pain, shortness of breath, fever, weakness, if you feel you are getting worse. MELO SUBRAMANIAN MD Jul 28, 2022 09:14
[2022-07-28] MEDS: LEVOTHYROXINE 25 MCG (LEVOTHROID) TAB PO SCH (09:28)
[2022-07-28] MEDS: ATENOLOL 50MG TABLET PO SCH (09:29)
[2022-07-28] MEDS: SENNOSIDES 8.6 MG (SENOKOT) TAB PO SCH (09:29)
[2022-07-28] MEDS: DOCUSATE SODIUM 100 MG (COLACE) CAP PO SCH (09:29)
--- NOTE | 2022-07-28 09:30 | Physical Therapy Daily Note ---
PT Daily Note-Current Subjective Patient in bed pre tx, agrees to PT, has no complaints of pain. Pain Section J - Health Conditions 1. Rarely or not at all 2. Occasionally 3. Frequently 4. Almost constantly 8. Unable to answer Pain Effect on Sleep: 1 Pain Interference with Therapy: 1 Pain Interference w/Day-to-Day: 1 Appearance Patient in bed post tx with nurse call, phone, tray, all needs met. Mental Status Patient Orientation: Person, Place, Situation Transfers SCALE: Activities may be completed with or without assistive devices. 6-Citkjmhiud-vjregwl completes the activity by him/herself with no assistance from a helper. 5-Set-up or Clean-up Assistance-helper sets up or cleans up; patient completes activity. [place] assists only prior to or following the activity. 4-Supervision or Touching Assistance-helper provides verbal cues and/or touching/steadying and/or contact guard assistance as patient completes activity. Assistance may be provided throughout the activity or intermittently. 3-Partial/Moderate Assistance-helper does LESS THAN HALF the effort. [place] lifts, holds or supports trunk or limbs, but provides less than half the effort. 2-Substantial/Maximal Assistance-helper does MORE THAN HALF the effort. [place] lifts or holds trunk or limbs and provides more than half the effort. 5-Rytulsysf-rihukk does ALL the effort. Patient does none of the effort to complete the activity. Or, the assistance of 2 or more helpers is required for the patient to complete the activity. If activity was not attempted, code reason: 7-Patient Refused. 9-Not Applicable-not attempted and the patient did not perform the activity before the current illness, exacerbation or injury. 10-Not Attempted due to Environmental Limitations-(lack of equipment, weather restraints, etc.). 88-Not Attempted due to Medical Conditions or Safety Concerns. Roll Left & Right (QC): 6 Sit to Lying (QC): 6 Lying to Sitting/Side of Bed(Q: 6 Sit to Stand (QC): 4 Chair/Ebh-wp-Jgaew Xfer(QC): 4 SBA for sit to stand and transfers Weight Bearing Right Lower Extremity: Right Full Weight Bearing Left Lower Extremity: Left Full Weight Bearing Gait Training Distance: 200' Walk 10 feet (QC): 4 Walk 50 ft with 2 Turns(QC): 4 Walk 150 ft (QC): 4 Gait Persons Needed: 1 Gait Assistive Device: FWW SBA, slow ambulation, didn't have a walker in his room and he requested one, more steady ambulation with walker Exercises Seated Therapy Exercises: Ankle pumps, Long arc quads Seated Reps: 20 Treatments bed mobility and transfers, ambulation, LE ROM Assessment Current Status: Fair Progress improving endurance PT Chimney Sweeper Goals Detention Goals PT Detention Goals Time Frame: Aug 28, 2022 Roll Left & Right (QC): 6 Sit to Lying (QC): 6 Lying-Sitting on Side/Bed(QC): 6 Sit to Stand (QC): 6 Chair/Mhu-ud-Pcauh Xfer(QC): 6 Toilet Transfer (QC): 6 Does the Patient Walk: Yes Walk 10 feet (QC): 6 Walk 50ft with 2 Turns (QC): 6 Walk 150 ft (QC): 6 1 Step (curb) (QC): 4 4 Steps (QC): 4 12 Steps (QC): 4 PT Plan Problem List Problem List: Activity Tolerance, Functional Strength, Safety, Balance, Gait, Transfer, ROM Treatment/Plan Treatment Plan: Continue Plan of Care Treatment Plan: Bed Mobility, Education, Functional Activity Arnaud, Functional Strength, Gait, Safety, Therapeutic Exercise, Transfers Treatment Duration: Aug 28, 2022 Frequency: 6 times per week Estimated Hrs Per Day: .25 hour per day Patient and/or Family Agrees t: Yes Safety Risks/Education Patient Education: Gait Training, Transfer Techniques, Correct Positioning, Safety Issues Teaching Recipient: Patient Teaching Methods: Demonstration, Discussion Response to Teaching: Reinforcement Needed Time Time In: 908 Time Out: 919 DATE: Jul 28, 2022 Total Billed Treatment Time: 11 Total Billed Treatment 1 visit FA NAOMI SHAW PT Jul 28, 2022 09:30
[2022-07-28 11:34] VITALS: BP 106/61
--- NOTE | 2022-07-28 13:58 | Discharge Summary ---
Diagnosis/Chief Complaint Date of Admission Jul 24, 2022 at 6:08 pm Date of Discharge Discharge Date: Jul 28, 2022 Admission Diagnosis Acute respiratory failure with hypoxia Primary Care No,Local Physician Discharge Diagnosis (1) Acute respiratory failure with hypoxia Status: Acute (2) Pleural effusion, right Status: Acute (3) COPD (chronic obstructive pulmonary disease) Status: Chronic (4) HTN (hypertension) Status: Chronic (5) Hypothyroidism Status: Chronic (6) Obesity Status: Chronic (7) GABRIEL (obstructive sleep apnea) Status: Chronic Discharge Summary Discharge Physical Exam Allergies: Coded Allergies: No Known Drug Allergies (Unverified , 07/24/22) Vitals & I&Os Vital Signs Date Time Temp Pulse Resp B/P (MAP) Pulse Ox O2 Delivery O2 Flow Rate FiO2 07/28/22 13:00 85 07/28/22 11:34 36.9 16 106/61 (76) 91 Room Air 07/28/22 03:11 32.00 07/27/22 14:31 21 General Appearance: No Apparent Distress, WD/WN Respiratory: Lungs Clear, No Respiratory Distress Cardiovascular: Regular Rate, Rhythm, No Murmur Neurologic/Psychiatric: Alert, Oriented x3 Hospital Course Patient was admitted to the hospital secondary to pleural effusion. Surgery was consulted and performed thoracentesis with 2.1 L removed. He did very well following this. Cultures of the pleural fluid were negative and pathology was all for malignant cells. He was able to be discharged home in stable and improved condition to follow-up with his primary care in [place], [place]. He was tested for oxygen prior to discharge and was found to have an exertional requirement which was arranged. Labs (last 24 hrs) Laboratory Tests 07/28/22 06:41: White Blood Count 7.9, Red Blood Count 5.44, Hemoglobin 16.4, Hematocrit 50, Mean Corpuscular Volume 93, Mean Corpuscular Hemoglobin 30, Mean Corpuscular Hemoglobin Concent 33, Red Cell Distribution Width 13.2, Platelet Count 184, Mean Platelet Volume 11.4, Immature Granulocyte % (Auto) 1, Neutrophils (%) ( Auto) 60, Lymphocytes (%) (Auto) 20, Monocytes (%) (Auto) 10, Eosinophils (%) (Auto) 9, Basophils (%) (Auto) 1, Neutrophils # (Auto) 4.8, Lymphocytes # (Auto) 1.6, Monocytes # (Auto) 0.8, Eosinophils # (Auto) 0.7H, Basophils # (Auto) 0.1, Immature Granulocyte # (Auto) 0.1, Sodium Level 136, Potassium Level 3.9, Chloride Level 100, Carbon Dioxide Level 24, Anion Gap 12, Blood Urea Nitrogen 16, Creatinine 0.84, Estimat Glomerular Filtration Rate 91, BUN/Creatinine Ratio 19, Glucose Level 86, Calcium Level 8.7, Magnesium Level 2.0 Microbiology 07/24/22 MRSA Screen - Final, Complete MRSA not isolated Patient resulted labs reviewed. Pending Labs Laboratory Tests 07/28/22 06:41: White Blood Count 7.9, Red Blood Count 5.44, Hemoglobin 16.4, Hematocrit 50, Mean Corpuscular Volume 93, Mean Corpuscular Hemoglobin 30, Mean Corpuscular Hemoglobin Concent 33, Red Cell Distribution Width 13.2, Platelet Count 184, Me an Platelet Volume 11.4, Immature Granulocyte % (Auto) 1, Neutrophils (%) (Auto) 60, Lymphocytes (%) (Auto) 20, Monocytes (%) (Auto) 10, Eosinophils (%) (Auto) 9, Basophils (%) (Auto) 1, Neutrophils # (Auto) 4.8, Lymphocytes # (Auto) 1.6, Monocytes # (Auto) 0.8, Eosinophils # (Auto) 0.7, Basophils # (Auto) 0.1, Immature Granulocyte # (Auto) 0.1, Sodium Level 136, Potassium Level 3.9, Chloride Level 100, Carbon Dioxide Level 24, Anion Gap 12, Blood Urea Nitrogen 16, Creatinine 0.84, Estimat Glomerular Filtration Rate 91, BUN/Creatinine Ratio 19, Glucose Level 86, Calcium Level 8.7, Magnesium Level 2.0 Imaging: Reviewed Imaging Films, Reviewed Imaging Report Discussion & Recommendations Discharge Planning: >30 minutes discharge planning Discharge Home Medications: Active Scripts Active Reported Combivent Respimat Inhal [place] (Albuterol/Ipratropium) 20 Mcg-100 Mcg/Actuation Aero 1 Puff IH QID PRN Atenolol 50 Mg Tablet 50 Mg PO DAILY Levothyroxine Sodium 25 Mcg Tablet 25 Mcg PO DAILY Instructions to patient/family Please see electronic discharge instructions given to patient. MELO SUBRAMANIAN MD Jul 28, 2022 1:58 pm
[2022-07-28 18:57] VITALS: BP 106/61
== END 2022-07-28 18:50 | disposition home or self-care (01) | DRG 186 ==
LOC: ER 12:44 → ICU 16:55 → OBSVTOIN 18:08 → 4TH 07-27 23:30
PROVIDERS: ADMIT Internal Medicine; ATTEND Internal Medicine
PROC: 5A09357 Assistance with Respiratory Ventilation, Less than 24 Consecutive Hours, Continuous Positive Airway Pressure (ICD-10-PCS; 2022-07-24)
PROC: 0W993ZZ Drainage of Right Pleural Cavity, Percutaneous Approach (ICD-10-PCS; principal; 2022-07-25)
PROC: 5A0935A Assistance with Respiratory Ventilation, Less than 24 Consecutive Hours, High Flow/Velocity Cannula (ICD-10-PCS; 2022-07-25)
DX: J90 Pleural effusion, not elsewhere classified (principal); J96.01 Acute respiratory failure with hypoxia; J44.1 Chronic obstructive pulmonary disease with (acute) exacerbation; G47.33 Obstructive sleep apnea (adult) (pediatric); I10 Essential (primary) hypertension; E03.9 Hypothyroidism, unspecified; E66.9 Obesity, unspecified; Z68.33 Body mass index [BMI] 33.0-33.9, adult; F17.220 Nicotine dependence, chewing tobacco, uncomplicated; Z20.822 Contact with and (suspected) exposure to COVID-19; H54.7 Unspecified visual loss; H91.90 Unspecified hearing loss, unspecified ear; M19.91 Primary osteoarthritis, unspecified site
CPT/HCPCS: 36415; 71045; 71275; 80048; 80053; 81000; 82805; 82945; 83735; 83880; 84145; 84157; 84484; 85007; 85025; 85027; 85379; 86141; 87070; 87075; 87081; 87205; 87636; 89051; 93005; 93041; 94640; 94660; 94761